=== PATIENT | female | born 1985 | race Caucasian/White ===

== ENCOUNTER 2019-01-09 21:37 | Inpatient (IN) | payer BC, OTHER ==
[~2019-01-09] VITALS: Ht 170.2 cm; Wt 97.5 kg
[2019-01-09] MEDS ORDERED: NS IV 1000 ML 1,000 ML IV STA ×2 (22:19→23:56)
[2019-01-09] MEDS ORDERED: KETOROLAC 30 MG/ML VIAL IVP STA (22:19)
[2019-01-09 22:34] LABS: HEMATOCRIT 45 % (35-52); HEMOGLOBIN 15.6 G/DL (11.5-16.0); MEAN CORPUSCULAR HEMOGLOBIN 31 PG (25-34); MEAN CORPUSCULAR HGB CONC 35 G/DL (32-36); MEAN CORPUSCULAR VOLUME 89 FL (80-99); RED CELL DISTRIBUTION WIDTH 11.7 % (10.0-14.5); WHITE BLOOD COUNT 10.1 10^3/uL (4.3-11.0)
[2019-01-09 22:35] LABS: BASOPHILS # (AUTO) 0.1 10^3/uL (0.0-0.1); BASOPHILS % (AUTO) 1 % (0-10); EOSINOPHILS # (AUTO) 0.2 10^3/uL (0.0-0.3); EOSINOPHILS % (AUTO) 2 % (0-10); LYMPHOCYTES # (AUTO) 3.8 X 10^3 (1.0-4.0); LYMPHOCYTES % (AUTO) 37 % (12-44); MEAN PLATELET VOLUME 10.1 FL (7.4-10.4); MONOCYTES # (AUTO) 0.8 X 10^3 (0.0-1.0); MONOCYTES % (AUTO) 8 % (0-12); NEUTROPHILS # (AUTO) 5.1 X 10^3 (1.8-7.8); NEUTROPHILS % (AUTO) 51 % (42-75); PLATELET COUNT 262 10^3/uL (130-400)
[2019-01-09 22:36] LABS: HCG,QUALITATIVE URINE NEGATIVE (NEGATIVE)
[2019-01-09] MEDS ORDERED: HOLD METFORMIN - RECEIVED CONTRAST 20 ML VIAL IV SCH (22:45)
[2019-01-09] MEDS ORDERED: IOHEXOL 350 MG/ML 100 ML (OMNIPAQUE 350) VIAL IV ONE (22:45)
[2019-01-09] MEDS ORDERED: NS 100 ML (IVPB) BAG IV ONE (22:45)
[2019-01-09 22:46] LABS: CLARITY,URINE CLEAR; COLOR,URINE YELLOW; GLUCOSE, URINE (UA) NEGATIVE (NEGATIVE); PROTEIN,URINE NEGATIVE (NEGATIVE)
[2019-01-09 22:47] LABS: BILIRUBIN,URINE NEGATIVE (NEGATIVE); KETONES,URINE NEGATIVE (NEGATIVE); LEUKOCYTE ESTERASE ,URINE NEGATIVE (NEGATIVE); NITRITE,URINE NEGATIVE (NEGATIVE)
[2019-01-09 22:48] LABS: BUN/CREATININE RATIO 8; CALCIUM 9.3 MG/DL (8.5-10.1); CARBON DIOXIDE 22 MMOL/L (21-32); CHLORIDE 100 MMOL/L (98-107); CREATININE SERUM 0.86 MG/DL (0.60-1.30); GFR ESTIMATED > 60; GLUCOSE 128 MG/DL (70-105); POTASSIUM 3.5 MMOL/L (3.6-5.0); SODIUM 138 MMOL/L (135-145)
[2019-01-09 22:49] LABS: ALANINE AMINOTRANSFERASE 42 U/L (0-55); ALBUMIN 4.3 GM/DL (3.2-4.5); ALKALINE PHOSPHATASE 111 U/L (40-136); BILIRUBIN,TOTAL 0.9 MG/DL (0.1-1.0); LIPASE 50 U/L (8-78); TOTAL PROTEIN 7.3 GM/DL (6.4-8.2)
--- NOTE | 2019-01-09 23:08 | ED Abdominal Pain ---
General Chief Complaint: Abdominal/GI Problems Stated Complaint: ABD PAIN, ALL OVER ITCHING Nursing Triage Note: PT. REPORTED SHE HAS HAD ABD PAIN THAT STARTED 2 WKS AGO BUT CONTINUED TO GET WORSE TONIGHT. THE PAIN IS ON THE RIGHT SIDE UNDER HER RIBS AND GOES THROUGH TO HER BACK. PT. REPORTED SHE HAS BEEN ITCHING ALL OVER FOR 3 DAYS. PT. STATED SHE STARTED A NEW CONTROL [place] 2 WKS AGO. PT. GALL BLADDER HAS BEEN REMOVED. Sepsis Screen: No Definite Risk Source of Information: Patient History of Present Illness Date Seen by Provider: Jan 09, 2019 Time Seen by Provider: 23:08 Initial Comments 33-year-old female presenting with complaints of illness 2 weeks of right upper quadrant abdominal pain. This pain is been getting worse and radiating into her back as well. She has had low-grade fevers and nausea with vomiting. She has also been having some itching and a fine erythematous rash on her arms and trunk. She has been having loose stools. She denies any black or tarry stools. She has not noticed any blood in her stools. She had been started on a new control as well as Zoloft 2 weeks ago and was unsure if that might be causing her symptoms. She felt like everything was getting worse and was most severe tonight so she came to the emergency department to be evaluated. She follows with a nurse practitioner at [facility]. She had been started on the control by Dr. Pope to help with ovarian cysts and pain from those. Allergies and Home Medications Allergies Coded Allergies: shellfish derived (Verified Allergy, Unknown, 01/09/19) Patient Home Medication List Home Medication List Reviewed: Yes Review of Systems Review of Systems Constitutional: chills, fever, malaise EENTM: No Blurred Vision, No Nose Congestion Respiratory: Denies Cough, Denies Shortness of Air Cardiovascular: Denies Chest Pain Gastrointestinal: Abdominal Pain (right side radiating to her back), Diarrhea (loose stools), Nausea; Denies Rectal Bleeding; Vomiting Genitourinary: Denies Burning, Denies Discharge, Denies Frequency; Flank Pain (right side) Musculoskeletal: back pain (right side where her abdomen pain and flank pain radiates into her back) Skin: pruritus, rash (arms and trunk) Psychiatric/Neurological: Anxiety Endocrine: No Symptoms Reported Past Yfydpqs-Cootah-Sflqfo Hx Past Med/Social Hx: Reviewed Nursing Past Med/Soc Hx Patient Social History Recent Foreign Travel: No Contact w/Someone Who Travel: No Recent Infectious Disease Expo: No Physical Abuse: No Sexual Abuse: No Mistreated: No Fear: No Past Medical History Surgeries: Yes Cardiac (cardiac ablation), Section, Gallbladder Physical Exam Vital Signs Vital Signs - First Documented 01/09/19 21:54 Temp 99.3 Pulse 115 Resp 20 B/P (MAP) 149/79 (102) Pulse Ox 99 O2 Delivery Room Air Capillary Refill : Less Than 3 Seconds Height/Weight/BMI Height: 5'7.00" Weight: 215lbs. oz. 97.298274kx; BMI Method:Stated General Appearance: WD/WN, moderate distress (patient is tearful and crying in pain) HEENT: PERRL/EOMI, normal ENT inspection, pharynx normal Neck: non-tender, full range of motion, supple, normal inspection Respiratory: chest non-tender, lungs clear, normal breath sounds, no respiratory distress, no accessory muscle use Cardiovascular: normal peripheral pulses, tachycardia Gastrointestinal: soft, no pulsatile mass, abnormal bowel sounds (hypoactive), guarding (right upper quadrant); No rebound; tenderness (right upper quadrant); No mass Rectal: deferred Extremities: normal range of motion, non-tender, normal inspection, no pedal edema, no calf tenderness, normal capillary refill Back: no vertebral tenderness, CVA tenderness (R) Neurologic/Psychiatric: alert, oriented x 3 Skin: normal color, warm/dry, rash (fine erythematous papular rash on her arms and trunk) Progress/Results/Core Measures Results/Orders Lab Results Laboratory Tests Test 01/09/19 22:06 01/09/19 22:10 Range/Units Urine Color YELLOW Urine Clarity CLEAR Urine pH 6.0 5-9 Urine Specific [place] <=1.005 1.016-1.022 Urine Protein NEGATIVE NEGATIVE Urine Glucose (UA) NEGATIVE NEGATIVE Urine Ketones NEGATIVE NEGATIVE Urine Nitrite NEGATIVE NEGATIVE Urine Bilirubin NEGATIVE NEGATIVE Urine Urobilinogen 1.0 NORMAL MG/DL Urine Leukocyte Esterase NEGATIVE NEGATIVE Urine RBC (Auto) NEGATIVE NEGATIVE Urine RBC /HPF Urine WBC /HPF Urine Crystals NONE /LPF Urine Bacteria /HPF Urine Casts NONE /LPF Urine Mucus NEGATIVE /LPF Urine Culture Indicated NO Urine Test NEGATIVE NEGATIVE White Blood Count 10.1 4.3-11.0 10^3/uL Red Blood Count 5.08 4.35-5.85 10^6/uL Hemoglobin 15.6 11.5-16.0 G/DL Hematocrit 45 35-52 % Mean Corpuscular Volume 89 80-99 FL Mean Corpuscular Hemoglobin 31 25-34 PG Mean Corpuscular Hemoglobin Concent 35 32-36 G/DL Red Cell Distribution Width 11.7 10.0-14.5 % Platelet Count 262 130-400 10^3/uL Mean Platelet Volume 10.1 7.4-10.4 FL Neutrophils (%) (Auto) 51 42-75 % Lymphocytes (%) (Auto) 37 12-44 % Monocytes (%) (Auto) 8 0-12 % Eosinophils (%) (Auto) 2 0-10 % Basophils (%) (Auto) 1 0-10 % Neutrophils # (Auto) 5.1 1.8-7.8 X 10^3 Lymphocytes # (Auto) 3.8 1.0-4.0 X 10^3 Monocytes # (Auto) 0.8 0.0-1.0 X 10^3 Eosinophils # (Auto) 0.2 0.0-0.3 10^3/uL Basophils # (Auto) 0.1 0.0-0.1 10^3/uL Sodium Level 138 135-145 MMOL/L Potassium Level 3.5 L 3.6-5.0 MMOL/L Chloride Level 100 98-107 MMOL/L Carbon Dioxide Level 22 21-32 MMOL/L Anion Gap 16 H 5-14 MMOL/L Blood Urea Nitrogen 7 7-18 MG/DL Creatinine 0.86 0.60-1.30 MG/DL Estimat Glomerular Filtration Rate > 60 BUN/Creatinine Ratio 8 Glucose Level 128 H 70-105 MG/DL Calcium Level 9.3 8.5-10.1 MG/DL Corrected Calcium 9.1 8.5-10.1 MG/DL Total Bilirubin 0.9 0.1-1.0 MG/DL Aspartate Amino Transf (AST/SGOT) 31 5-34 U/L Alanine Aminotransferase (ALT/SGPT) 42 0-55 U/L Alkaline Phosphatase 111 40-136 U/L Total Protein 7.3 6.4-8.2 GM/DL Albumin 4.3 3.2-4.5 GM/DL Lipase 50 8-78 U/L My Orders Orders - MONIKA KOTHARI MD Ua Culture If Indicated (01/09/19 21:58) Hcg,Qualitative Urine (01/09/19 21:58) Comprehensive Metabolic Panel (01/09/19 22:19) Lipase (01/09/19 22:19) Ed Iv/Invasive Line Start (01/09/19 22:19) Cbc With Automated Diff (01/09/19 22:19) Ns Iv 1000 Ml (Sodium Chloride 0.9%) (01/09/19 22:19) Ketorolac Injection (Toradol Injection) (01/09/19 22:19) Iohexol Injection (Omnipaque 350 Mg/Ml 1 (01/09/19 22:45) Received Contrast (Hold Metformin- Contr (01/09/19 22:45) Ns (Ivpb) (Sodium Chloride 0.9% Ivpb Bag (01/09/19 22:45) Ct Abdomen/Pelvis Wo (01/09/19 22:19) Fentanyl Injection (Sublimaze Injection (01/09/19 23:50) Ceftriaxone For Iv Use (Rocephin For I (01/09/19 23:50) Metronidazole 500mg/100ml Ivpb (Flagyl 5 (01/09/19 23:50) Ondansetron Injection (Zofran Injectio (01/09/19 23:56) Ns Iv 1000 Ml (Sodium Chloride 0.9%) (01/09/19 23:56) Vital Signs/I&O 01/09/19 01/10/19 21:54 00:16 Temp 99.3 98.3 Pulse 115 80 Resp 20 16 B/P (MAP) 149/79 (102) 112/83 (93) Pulse Ox 99 97 O2 Delivery Room Air Room Air 01/10/19 00:00 Intake Total 1000 ml Balance 1000 ml Blood Pressure Mean: 102 Progress Progress Note #1: Progress Note Obtain labs and urinalysis. We will give Toradol to try and help with the pain. IV fluids to help with hydration and tachycardia. Obtain a CT scan of the abdom en and pelvis to evaluate her right upper quadrant abdominal pain. We'll perform this without contrast since she has a history of shellfish allergy is unsure if she can take contrast or not. Progress Note #2: Progress Note Labs do not show anything specific to account for her pain. Her CBC is within normal limits. Her chemistry has mild hypokalemia with a potassium of the lower limits of normal. She has been having loose stools but she has those anyway because of having her gallbladder out. She has CT scan showing mucosal wall thickening of the ascending and transverse colon and some into the descending colon. She has no abscess or signs of perforation. She has improved pain after the toradol and her heart rate improved after fluids and treatment in the ED. She does have continued pain though in RUQ so a dose of fentanyl was give but she still has pain in the abdomen. Will start Rocephin and Flagyl for her pain and findings of colitis. will check with Dr. Villafana, the ironing worker doctor for [facility], about admit Progress Note #3: Time: 00:24 Progress Note d/w Dr. Villafana about admit. She requested I also speak with Dr. Pacheco the ironing worker surgeon about the patient so that he would see her in consult and weigh in on management for the colitis and abdominal pain. [address] Pacheco and he was ok with antibiotics for tonight. He stated that in the morning he recheck the labs and reassess her abdomen. She may be suspicious over to steroids at that time. He was also asking if she had any history of inflammatory bowel disease or family history of that. I advised him when I asked her about that she had denied it. She also denies eating at the local [employer] [facility] [employer] restaurant that recently had Shigella outbreak. We will obtain stool studies just in case any of this was infectious. Diagnostic Imaging Diagonstic Imaging: CT Plain Films/CT/US/NM/MRI: abdomen, pelvis Comments Colitis of the ascending and transverse colon as well as extending into the descending colon. No abscess or signs of perforation. There is cyst in the left ovary that appears to be a Dermoid cyst. Reviewed: Reviewed [facility] Departure Communication (Admissions) Time/Spoke to Admitting Phy: 00:24 D/w Dr. Villafana about admitting pt for pain control and antibiotics for colitis found on CT. She has been having worsening pain over the last 2 weeks. She has no hx of colitis or family hx of colitis/IBD or ulcerative colitis. Time/Spoke to Consulting Phy: 00:[address] Pacheco at request of Dr. Villafana. He was ok with antibiotics and wanted stool studies. will recheck labs and assess her abdomen again. He might switch her to steroids but for now will start with the antibiotics, pain medicine and fluids. Impression Primary Impression: Acute colitis Additional Impressions: RUQ abdominal pain Rash and nonspecific skin eruption Itching Nausea & vomiting Qualified Codes: R11.14 - Bilious vomiting Disposition: ADMITTED INPATIENT Condition: Stable Admissions Decision to Admit Reason: Admit from ER (General) Decision to Admit/Date: Jan 10, 2019 Time/Decision to Admit Time: 00:24 Departure-Patient Inst. Referrals: [facility] (PCP) Primary Care Physician Images Full Body/Extremities Full 1 - Moderate, Tenderness MONIKA KOTHARI MD Jan 09, 2019 23:08
[2019-01-09] MEDS ORDERED: metroNIDAZOLE 500MG/100ML IVPB 100 ML IV STA (23:50)
[2019-01-09] MEDS ORDERED: cefTRIAXone FOR IV USE 1,000 MG in WATER (STERILE) FOR INJECTION 10 ML IV STA (23:50)
[2019-01-09] MEDS ORDERED: fentaNYL INJECTION 100 MCG/2 ML AMP IVP STA (23:50)
[2019-01-09] MEDS ORDERED: ONDANSETRON 4 MG/2 ML (SDV) Z0FRAN IVP STA (23:56)
[2019-01-10] VITALS (7 sets, daily range): BP systolic 103–134; BP diastolic 65–83
[2019-01-10] MEDS: ONDANSETRON 4 MG/2 ML (SDV) Z0FRAN IV PRN ×2 (04:57→17:21)
[2019-01-10] MEDS ORDERED: diphenhydrAMINE 50 MG/ML INJ (BENADRYL) IV PRN (05:00)
[2019-01-10] MEDS: fentaNYL INJECTION 100 MCG/2 ML AMP IV PRN ×6 (05:02→22:36)
[2019-01-10] MEDS: NS W/KCL 20 MEQ/L 1,000 ML IV SCH ×3 (05:13→23:28)
[2019-01-10 05:34] LABS: BASOPHILS % (AUTO) 0 % (0-10); EOSINOPHILS # (AUTO) 0.2 10^3/uL (0.0-0.3); EOSINOPHILS % (AUTO) 3 % (0-10); HEMATOCRIT 39 % (35-52); HEMOGLOBIN 13.4 G/DL (11.5-16.0); LYMPHOCYTES # (AUTO) 3.1 X 10^3 (1.0-4.0); LYMPHOCYTES % (AUTO) 45 % (12-44); MEAN CORPUSCULAR HEMOGLOBIN 31 PG (25-34); MEAN CORPUSCULAR HGB CONC 34 G/DL (32-36); MEAN CORPUSCULAR VOLUME 90 FL (80-99); MEAN PLATELET VOLUME 10.3 FL (7.4-10.4); MONOCYTES # (AUTO) 0.6 X 10^3 (0.0-1.0); MONOCYTES % (AUTO) 8 % (0-12); NEUTROPHILS % (AUTO) 44 % (42-75); PLATELET COUNT 207 10^3/uL (130-400); RED CELL DISTRIBUTION WIDTH 11.9 % (10.0-14.5); WHITE BLOOD COUNT 6.9 10^3/uL (4.3-11.0)
[2019-01-10 05:52] LABS: BUN/CREATININE RATIO 9; CALCIUM 8.1 MG/DL (8.5-10.1); CARBON DIOXIDE 20 MMOL/L (21-32); CHLORIDE 110 MMOL/L (98-107); CREATININE SERUM 0.75 MG/DL (0.60-1.30); GFR ESTIMATED > 60; GLUCOSE 94 MG/DL (70-105); POTASSIUM 3.8 MMOL/L (3.6-5.0); SODIUM 139 MMOL/L (135-145)
--- NOTE | 2019-01-10 06:36 | Diagnostic Imaging Report ---
PROCEDURE: CT abdomen and pelvis without contrast. TECHNIQUE: Multiple contiguous axial images were obtained through the abdomen and pelvis without the use of intravenous contrast. Auto Exposure Controls were utilized during the CT exam to meet ALARA standards for radiation dose reduction. INDICATION: Abdominal pain COMPARISON: None available FINDINGS: The visualized lung bases are clear. Cholecystectomy. The unenhanced liver, spleen, adrenal glands, and pancreas are unremarkable. The kidneys and ureters are unremarkable. No aneurysmal dilatation of the abdominal aorta. The urinary bladder is unremarkable. A 3.4 cm fat-containing left adnexal mass lesion. The right adnexa is unremarkable. The appendix is unremarkable. No bowel obstruction or pneumatosis. Mild mural thickening associated with the ascending colon and proximal transverse colon. No significant adenopathy, free air, or free fluid within the abdomen or pelvis. No acute osseous abnormality. IMPRESSION: Findings likely relate to colitis, predominantly involving the ascending and proximal transverse colon. Left ovarian dermoid. Agree with preliminary interpretation. Dictated by: Dictated on workstation # [id number]
[2019-01-10] MEDS: metroNIDAZOLE 500 MG/100 ML IVPB (PRE-MIX) IV SCH ×3 (07:56→23:28)
--- NOTE | 2019-01-10 08:46 | Consultation - Surgery ---
MARY WEBB,MED STUDENT 01/10/19 0846: History of Present Illness History of Present Illness Patient Consulted On(michelle/time) 01/10/19 07:25 Date Seen by Provider: Jan 10, 2019 Time Seen by Provider: 07:25 History of Present Illness Consultation as requested for colitis. Patient seen and evaluated in med/surg. Patient presented to the emergency department last night due to RUQ abdominal pa in, nausea, and vomiting. The RUQ pain began 2 weeks ago and has been progressively worsening. It is made better by laying still and worsened with pressure on the abdomen. Patient is status post cholecystectomy which she states was performed about 1 year ago. She also complains of some LLQ pain which she attributes to an ovarian cyst on the left side. She states her nausea has impr chel today and she has not had any further emesis since last night. WBC down to 6.9 from 10.1 last night. Tolerating clear liquid diet. Denies diarrhea, melena, hematochezia, sweats, or chills. Denies history of colitis or IBD. Also denied eating at [employer] recently which had a recent Shigella outbreak. No family at bedside. Imaging reviewed including CT abd/pelvis which showed mild mural thickening of ascending colon and proximal transverse colon, likely related to colitis, without evidence of perforation. left ovarian dermoid cyst. Allergies and Home Medications Allergies Coded Allergies: shellfish derived (Verified Allergy, Unknown, 01/09/19) Home Medications Norethindrone-E.estradiol-Iron 1 Each Capsule, 1 CAP PO DAILY, (Reported) Sertraline HCl 25 Mg Tablet, 25 MG PO HS, (Reported) Patient Home Medication List Home Medication List Reviewed: Yes Past Bnavyeh-Oszted-Leagmg Hx Patient Social History Recent Foreign Travel: No Contact w/Someone Who Travel: No Recent Infectious Disease Expo: No Surgeries History of Surgeries: Yes Surgeries: Cardiac (cardiac ablation), Section, Gallbladder Family Medical History Family Medial History: Diabetes mellitus 19 FATHER G8 BROTHER Review of Systems-General Constitutional: see HPI EENTM: no symptoms reported Respiratory: no symptoms reported Cardiovascular: no symptoms reported Gastrointestinal: see HPI, abdominal pain (RUQ, LLQ) Genitourinary: no symptoms reported Musculoskeletal: no symptoms reported Skin: no symptoms reported Psychiatric/Neurological: No Symptoms Reported Physical Exam-General Problems Physical Exam Vital Signs Vital Signs - First Documented 01/09/19 21:54 Temp 99.3 Pulse 115 Resp 20 B/P (MAP) 149/79 (102) Pulse Ox 99 O2 Delivery Room Air Capillary Refill : Less Than 3 Seconds General Appearance: WD/WN, no apparent distress HEENT: PERRL/EOMI, pharynx normal Neck: non-tender, full range of motion, supple, normal inspection Respiratory: chest non-tender, no respiratory distress, no accessory muscle use Cardiovascular: normal peripheral pulses, regular rate, rhythm Gastrointestinal: soft; No distended; tenderness (mild diffuse tenderness with moderate tenderness over RUQ) Rectal: deferred Back: normal inspection, no CVA tenderness Extremities: normal range of motion, non-tender, normal inspection Neurologic/Psychiatric: no motor/sensory deficits, alert, normal mood/affect, oriented x 3 Skin: normal color, warm/dry Lymphatic: no adenopathy Data Review Labs Laboratory Tests 01/09/19 22:06: Urine Color YELLOW, Urine Clarity CLEAR, Urine pH 6.0, Urine Specific [place] <=1.005, Urine Protein NEGATIVE, Urine Glucose (UA) NEGATIVE, Urine Ketones NEGATIVE, Urine Nitrite NEGATIVE, Urine Bilirubin NEGATIVE, Urine Urobilinogen 1.0, Urine Leukocyte Esterase NEGATIVE, Urine RBC (Auto) NEGATIVE, Urine RBC , Urine WBC , Urine Crystals NONE, Urine Bacteria , Urine Casts NONE, Urine Mucus NEGATIVE, Urine Culture Indicated NO, Urine Test NEGATIVE 01/09/19 22:10: White Blood Count 10.1, Red Blood Count 5.08, Hemoglobin 15.6, Hematocrit 45, Mean Corpuscular Volume 89, Mean Corpuscular Hemoglobin 31, Mean Corpuscular Hemoglobin Concent 35, Red Cell Distribution Width 11.7, Platelet Count 262, Mean Platelet Volume 10.1, Neutrophils (%) (Auto) 51, Lymphocytes (%) (Auto) 37, Monocytes (%) (Auto) 8, Eosinophils (%) (Auto) 2, Basophils (%) (Auto) 1, Neutrophils # (Auto) 5.1, Lymphocytes # (Auto) 3.8, Monocytes # (Auto) 0.8, Eosinophils # (Auto) 0.2, Basophils # (Auto) 0.1, Sodium Level 138, Potassium Level 3.5L, Chloride Level 100, Carbon Dioxide Level 22, Anion Gap 16H, Blood Urea Nitrogen 7, Creatinine 0.86, Estimat Glomerular Filtration Rate > 60, BUN/Creatinine Ratio 8, Glucose Level 128H, Calcium Level 9.3, Corrected Calcium 9.1, Total Bilirubin 0.9, Aspartate Amino Transf (AST/SGOT) 31, Alanine Aminot ransferase (ALT/SGPT) 42, Alkaline Phosphatase 111, Total Protein 7.3, Albumin 4.3, Lipase 50 01/10/19 05:04: White Blood Count 6.9, Red Blood Count 4.35, Hemoglobin 13.4, Hematocrit 39, Mean Corpuscular Volume 90, Mean Corpuscular Hemoglobin 31, Mean Corpuscular Hemoglobin Concent 34, Red Cell Distribution Width 11.9, Platelet Count 207, Mean Platelet Volume 10.3, Neutrophils (%) (Auto) 44, Lymphocytes (%) (Auto) 45H , Monocytes (%) (Auto) 8, Eosinophils (%) (Auto) 3, Basophils (%) (Auto) 0, Neutrophils # (Auto) 3.0, Lymphocytes # (Auto) 3.1, Monocytes # (Auto) 0.6, Eosinophils # (Auto) 0.2, Basophils # (Auto) 0.0, Sodium Level 139, Potassium Level 3.8, Chloride Level 110#H, Carbon Dioxide Level 20L, Anion Gap 9, Blood Urea Nitrogen 7, Creatinine 0.75, Estimat Glomerular Filtration Rate > 60, BUN/Creatinine Ratio 9, Glucose Level 94, Calcium Level 8.1L Assessment/Plan Assessment/Plan Assessment/Plan RUQ Abdominal pain Nausea and vomiting Colitis of ascending and proximal transverse colon Continue antibiotics and clear liquids Stool cultures pending Pain well controlled at this time Will follow Clinical Quality Measures DVT/VTE Risk/Contraindication: Risk Factor Score Per Nursin RFS Level Per Nursing on Admit: 2=Moderate ASHVIN PACHECO DO 01/10/192056: History of Present Illness History of Present Illness History of Present Illness consult requested by Dr. Villafana for colitis Patient is a 33-year-old female who has been having abdominal pain for proximal 2 weeks. She states the pain has increased over the last couple days. Her pain is primarily on the right side of her abdomen more in the right quadrant upper. Patient states that the pain is made better by lying still. Pushing on the abdomen next the pain worse. Patient states that she's had some loose stools but no diarrhea. Patient has never had any issues of pain like this before. She is also has left lower quadrant abdominal pain. She has had some emesis previously but has not had any since admitted. Patient had CT scan that was reviewed demonstrating a left adnexal cysts and ascending and transverse colon thickening consistent with colitis. No free air. Patient has been on clear liquids which she is tolerating.at onset patient was started on some new medications which she thinks may be contributing to her symptoms. Allergies and Home Medications Allergies Coded Allergies: shellfish derived (Verified Allergy, Unknown, 01/09/19) Home Medications Norethindrone-E.estradiol-Iron 1 Each Capsule, 1 CAP PO DAILY, (Reported) Sertraline HCl 25 Mg Tablet, 25 MG PO HS, (Reported) Patient Home Medication List Home Medication List Reviewed: Yes Past Fdgigjf-Fyzbng-Dnrdgn Hx Patient Social History Alcohol Use: Occasionally Uses Recreational Drug Use: No Smoking Status: Current Everyday Smoker Surgeries Surgeries: Cardiac (cardiac ablation), Section, Gallbladder Family Medical History Significant Family History: No Pertinent Family Hx Family Medial History: Diabetes mellitus 19 FATHER G8 BROTHER Review of Systems-General Constitutional: see HPI EENTM: no symptoms reported Respiratory: no symptoms reported Cardiovascular: no symptoms reported Gastrointestinal: see HPI Genitourinary: no symptoms reported Musculoskeletal: no symptoms reported Skin: no symptoms reported Psychiatric/Neurological: No Symptoms Reported Physical Exam-General Problems Physical Exam General Appearance: WD/WN, no apparent distress HEENT: PERRL/EOMI, normal ENT inspection Neck: non-tender, full range of motion, supple, normal inspection Cardiovascular: regular rate, rhythm Gastrointestinal: soft, tenderness (mild diffuse tenderness with moderate tenderness over RUQ) Back: normal inspection, no CVA tenderness Extremities: normal range of motion, non-tender, normal inspection Neurologic/Psychiatric: no motor/sensory deficits, alert, normal mood/affect, oriented x 3 Skin: normal color, warm/dry Lymphatic: no adenopathy Assessment/Plan Assessment/Plan Assessment/Plan right upperquadrant and left lower quadrant abdominal pain Nausea and vomiting Colitis of the ascending and proximal transverse colon patient continue on clear liquid diet. Patient no white count elevation. Continue on IV antibiotics. Pain control. No surgical intervention at this time. Will need colonoscopy likely outpatient. If any worsening may need to evaluate this admission.conservative measures for now. Supervisory-Addendum Brief Verification & Attestation Participated in pt care: history, MDM, physical Personally performed: exam, history, MDM, supervision of care Care discussed with: Medical Student Procedures: n/a Results interpretation: Verified all documentation Verification and Attestation of Medical Student E/M Service A medical student performed and documented this service in my presence. I reviewed and verified all information documented by the medical student and made modifications to such information, when appropriate. I personally performed the physical exam and medical decision making. Ashvin Pacheco, Jan 10, 2019,20:58 MARY WEBB,MED STUDENT Jan 10, 2019 08:46 ASHVIN PACHECO DO Jan 10, 2019 20:57
[2019-01-10] MEDS ORDERED: NORE1CAP PO (09:23)
[2019-01-10] MEDS ORDERED: SERT25TA5 PO (09:23)
[2019-01-10] MEDS ORDERED: BIRTH CONTROL (09:23)
--- NOTE | 2019-01-10 11:50 | History & Physical-Hospitalist ---
AURY REID [facility] 01/10/19 1150: History of Present Illness HPI/Chief Complaint C/C: Abdominal Pain HPI: Allison is a 33 year old white female that presented with RUQ abdominal pain that has been going on for two weeks. She also has a rash on her body. She stated she was concerned that it may have something to do with her new control and depression medication she started two weeks ago. Date Seen 01/10/19 Time Seen by a Provider: 08:15 Attending Physician Kyleigh Honeycutt DO [facility] Ref[facility] Date of Admission Jan 10, 2019 at 00:24 Home Medications & Allergies Home Medications Reviewed patient Home Medication Reconciliation performed by pharmacy medication reconciliations forklift technician and/or nursing. Patients Allergies have been reviewed. Patient stated she is currently on: [place] QD Zoloft 25mg QD Ibuprofen PRN Vitamin B Allergies Allergies Coded Allergies shellfish derived (Verified Allergy, Unknown, 01/09/19) Past Kqbvwke-Ejigau-Vpoxig Hx Past Med/Social Hx: Reviewed Nursing Past Med/Soc Hx Patient Social History Number of Children: 3 Employed/Student: employed Alcohol Use: Occasionally Uses Smoking Status: Current Everyday Smoker Cigaretts per day: 24 (Patient states she smokes a pack aday since she was in high school ) Recent Foreign Travel: No Contact w/other who traveled: No Recent Infectious Disease Expo: No Past Medical History Surgeries: Cardiac (cardiac ablation), Section, Gallbladder : No Female Reproductive Disorders: Ovarian Cyst (Left Ovarian Cyst) Psychosocial: Depression Cholecystectomy C- sections Cardiac ablation Left ovarian cyst Family History Diabetes mellitus 19 FATHER G8 BROTHER Father: at 64, had diabetes, CHF, Cirrhosis of the liver, peripheral neuropathy Mother: still alive, hx of breast cancer, uterine cancer and RA Brother: diabetes Review of Systems Constitutional: No diaphoresis; dizziness; No fever; weight loss EENTM: eye pain; No hearing loss, No blurred vision, No double vision, No mouth pain, No mouth swelling, No nose pain, No throat pain Respiratory: no symptoms reported Cardiovascular: no symptoms reported Gastrointestinal: abdominal pain; No jaundice Genitourinary: no symptoms reported Musculoskeletal: back pain, other (Patient has neck pain ) Skin: other (Patient states she had a small rash) Psychiatric/Neurological: Depressed Physical Exam Physical Exam Vital Signs Vital Signs - First Documented 01/09/19 21:54 Temp 99.3 Pulse 115 Resp 20 B/P (MAP) 149/79 (102) Pulse Ox 99 O2 Delivery Room Air Capillary Refill : Less Than 3 Seconds Height, Weight, BMI Height: 5'7.00" Weight: 215lbs. 0.0oz. [id number]; 33.7 BMI Method:Stated General Appearance: No Apparent Distress Eyes: Bilateral Eye PERRL HEENT: Normal ENT Inspection, Moist Mucous Membranes Neck: Full Range of Motion, Non Tender Respiratory: Chest Non Tender, Lungs Clear, Normal Breath Sounds, No Accessory Muscle Use, No Respiratory Distress Cardiovascular: Regular Rate, Rhythm, No Edema, No JVD Gastrointestinal: Other (Bowels sounds and tender abdomen) Extremity: Normal Capillary Refill Neurologic/Psychiatric: Alert, Oriented x3, camp assistant II-XII Norm as Tested Skin: Normal Color, Warm/Dry Results Results/Procedures Labs Laboratory Tests 01/09/19 22:10 01/10/19 05:04 Patient resulted labs reviewed. Assessment/Plan Assessment and Plan Assessment: 1. Ascending Cholangitis 2. Allergic Reaction to new medication 3. Primary Biliary Cirrhosis 4. Irritable [place] Disease (Crohn or UC) 5. Choledocholithiasis 6. Acute Pancreatitis 7. Kidney Stone 8. Hepatitis (A,B,C, Autoimmune) 9. Acute Intermittent Porphyria 10. Celiac Disease 11. C-diff 12. Adhesions 13. M.S 14. Viral or Bacterial infection Plan: 1. Stop Zoloft and Control 2. ANCA Test 3. ESR 4. Stool Sample and C-diff toxin test 5. Colonoscopy 6. Continue on IV fluids and keep patient NPO 7. Continue on Antibiotics 8. Monitor labs (CBC w/diff, CMP, GGT, Lipase, Lactic Acid) 9. Continue monitoring vitals q6 Clinical Quality Measures DVT/VTE Risk/Contraindication: Risk Factor Score Per Nursin RFS Level Per Nursing on Admit: 2=Moderate KYLEIGH HONEYCUTT DO 01/10/192050: History of Present Illness HPI/Chief Complaint Chief complaint: Abdominal pain HPI: This is a 33yoWF with a past medical history of severe depression who was placed on new medication for depression two weeks ago but began having abdominal pain without diarrhea or melena. CT scan in the ER at [place] was obtained showing mishra colitis so she was placed on Rocephin and Flagyl in addition Dr. Pacheco will be consulted. No surgical emergency noted but she will need endoscopy ultimately. C-Diff is pending. Abdominal pain is such improved and the last BM was the day before yesterday. Source: patient Past Rekevod-Qmjdxf-Qhisiw Hx Past Med/Social Hx: Reviewed Nursing Past Med/Soc Hx, Reviewed and Corrections made Patient Social History Employed/Student: employed Alcohol Use: Occasionally Uses Smoking Status: Current Everyday Smoker Family History Diabetes mellitus 19 FATHER G8 BROTHER Review of Systems Constitutional: see HPI Gastrointestinal: abdominal pain (LLQ) Physical Exam Physical Exam General Appearance: No Apparent Distress, WD/WN, Chronically ill, Obese Eyes: Right Eye Normal Inspection, Right Eye PERRL HEENT: PERRL/EOMI, Normal ENT Inspection, Pharynx Normal, Moist Mucous Membranes Neck: Full Range of Motion, Normal Inspection, Non Tender Respiratory: Chest Non Tender, Lungs Clear, Normal Breath Sounds, No Accessory Muscle Use, No Respiratory Distress Cardiovascular: Regular Rate, Rhythm, No Edema, No Gallop, No JVD, No Murmur, Normal Peripheral Pulses Gastrointestinal: Normal Bowel Sounds, No Organomegaly, No Pulsatile Mass, Soft, Tenderness Back: Normal Inspection, No CVA Tenderness, No Vertebral Tenderness Extremity: Normal Capillary Refill, Normal Inspection, Normal Range of Motion, Non Tender, No Calf Tenderness, No Pedal Edema Neurologic/Psychiatric: Alert, Oriented x3, No Motor/Sensory Deficits, Depressed Affect Skin: Normal Color, Warm/Dry Lymphatic: No Adenopathy Assessment/Plan Admission Diagnosis Assessment: Pancolitis Depression Obesity Smoker Plan: Abx Check C diff Appreciate Dr Pacheco help Admission Status: Observation Diagnosis/Problems Diagnosis/Problems (1) Acute colitis Status: Acute (2) Smoker Status: Chronic (3) Obesity (BMI 30-39.9) (4) Depression Status: Chronic Qualifiers: Depression Type: unspecified Qualified Codes: F32.9 - Major depressive disorder, single episode, unspecified (5) Nausea & vomiting Status: Acute Qualifiers: Vomiting type: bilious vomiting Qualified Codes: R11.14 - Bilious vomiting (6) Rash and nonspecific skin eruption Status: Acute Supervisory-Addendum Brief Verification & Attestation Participated in pt care: history, MDM, physical Personally performed: exam, history, MDM, supervision of care Care discussed with: Medical Student Procedures: n/a Results interpretation: Verified all documentation Verification and Attestation of Medical Student E/M Service A medical student performed and documented this service in my presence. I reviewed and verified all information documented by the medical student and made modifications to such information, when appropriate. I personally performed the physical exam and medical decision making. Kyleigh Honeycutt, Jan 10, 2019,20:51 [facility] Jan 10, 2019 11:50 KYLEIGH HONEYCUTT DO Jan 10, 2019 20:51
[2019-01-10] MEDS ORDERED: MELATONIN 3 MG TABLET PO PRN (21:00)
[2019-01-10] MEDS ORDERED: ACETAMINOPHEN 500 MG TAB (TYLENOL) PO PRN (21:00)
[2019-01-10] MEDS ORDERED: IBUPROFEN TABLET 200 MG TAB PO PRN (21:00)
[2019-01-10] MEDS ORDERED: ALPRAZolam 0.25 MG (XANAX) TAB PO PRN (21:00)
[2019-01-10] MEDS: ENOXAPARIN 40 MG/0.4 ML (LOVENOX) SYR SC SCH (22:25)
[2019-01-10] MEDS: cefTRIAXone 1,000 MG/SWFI 10 ML IV PUSH IV SCH ×2 (22:25)
[2019-01-10] MEDS ORDERED: SCOPOLAMINE 1.5 MG (TRANSDERM-SCOP) PATCH TD ONE (23:45)
[2019-01-11] MEDS: fentaNYL INJECTION 100 MCG/2 ML AMP IV PRN (00:21)
[2019-01-11] MEDS: ONDANSETRON 4 MG/2 ML (SDV) Z0FRAN IV PRN ×4 (00:22→23:38)
[2019-01-11 00:41] VITALS: BP 102/67
[2019-01-11] MEDS: NS W/KCL 20 MEQ/L 1,000 ML IV SCH ×3 (01:00→21:08)
[2019-01-11 05:46] LABS: BASOPHILS % (AUTO) 1 % (0-10); EOSINOPHILS # (AUTO) 0.2 10^3/uL (0.0-0.3); EOSINOPHILS % (AUTO) 3 % (0-10); HEMATOCRIT 38 % (35-52); HEMOGLOBIN 12.9 G/DL (11.5-16.0); LYMPHOCYTES # (AUTO) 2.7 X 10^3 (1.0-4.0); LYMPHOCYTES % (AUTO) 49 % (12-44); MEAN CORPUSCULAR HEMOGLOBIN 31 PG (25-34); MEAN CORPUSCULAR HGB CONC 34 G/DL (32-36); MEAN CORPUSCULAR VOLUME 91 FL (80-99); MEAN PLATELET VOLUME 10.2 FL (7.4-10.4); MONOCYTES # (AUTO) 0.4 X 10^3 (0.0-1.0); MONOCYTES % (AUTO) 8 % (0-12); NEUTROPHILS # (AUTO) 2.1 X 10^3 (1.8-7.8); NEUTROPHILS % (AUTO) 39 % (42-75); PLATELET COUNT 189 10^3/uL (130-400); WHITE BLOOD COUNT 5.4 10^3/uL (4.3-11.0)
[2019-01-11 06:31] LABS: ALANINE AMINOTRANSFERASE 36 U/L (0-55); ALBUMIN 3.2 GM/DL (3.2-4.5); ALKALINE PHOSPHATASE 82 U/L (40-136); BILIRUBIN,TOTAL 0.5 MG/DL (0.1-1.0); BUN/CREATININE RATIO 8; CALCIUM 8.1 MG/DL (8.5-10.1); CARBON DIOXIDE 20 MMOL/L (21-32); CHLORIDE 110 MMOL/L (98-107); CREATININE SERUM 0.75 MG/DL (0.60-1.30); GFR ESTIMATED > 60; GLUCOSE 86 MG/DL (70-105); POTASSIUM 4.1 MMOL/L (3.6-5.0); SODIUM 138 MMOL/L (135-145); TOTAL PROTEIN 5.6 GM/DL (6.4-8.2)
--- NOTE | 2019-01-11 07:50 | Progress Note - Surgery ---
TRACEYMARY,MED STUDENT 01/11/19 0750: Subjective Date Seen by a Provider: Jan 11, 2019 Time Seen by a Provider: 07:30 Subjective/Events-last exam Patient states her right sided abdominal pain has slightly improved on clear liquids. She is complaining of nausea and vomiting with 3 episodes of emesis yesterday. Her WBC is not elevated. She has not had a bowel movement since admission. Denies fever, chills, chest pain, shortness of breath, or diarrhea. No family at bedside. Objective Exam Vital Signs Date Time Temp Pulse Resp B/P (MAP) Pulse Ox O2 Delivery O2 Flow Rate FiO2 01/11/19 00:41 97.8 73 18 102/67 (79) 98 Room Air 01/10/19 22:36 97.5 01/10/19 20:40 97.5 72 18 109/69 (82) 98 Room Air 01/10/19 20:00 98 Room Air 01/10/19 16:55 97.4 77 18 103/68 (80) 99 Room Air 01/10/19 11:38 97.6 64 20 111/74 (86) 100 Room Air 01/10/19 08:00 Room Air I & O 01/11/19 06:59 Intake Total 1759 ml Balance 1759 ml Capillary Refill : Less Than 3 SecondsLess Than 3 Seconds General Appearance: No Apparent Distress, WD/WN HEENT: PERRL/EOMI, Pharynx Normal, Moist Mucous Membranes Neck: Full Range of Motion, Normal Inspection, Non Tender Respiratory: Chest Non Tender, No Accessory Muscle Use, No Respiratory Distress Cardiovascular: Regular Rate, Rhythm, Normal Peripheral Pulses Gastrointestinal: soft, tenderness (mild diffuse tenderness with moderate tenderness over RUQ) Extremity: Normal Capillary Refill, Normal Inspection, Normal Range of Motion, Non Tender, No Calf Tenderness Neurologic/Psychiatric: Alert, Oriented x3, No Motor/Sensory Deficits Skin: Normal Color, Warm/Dry Lymphatic: No Adenopathy Results Lab Laboratory Tests 01/11/19 05:14: White Blood Count 5.4, Red Blood Count 4.17L, Hemoglobin 12.9, Hematocrit 38, Mean Corpuscular Volume 91, Mean Corpuscular Hemoglobin 31, Mean Corpuscular Hemoglobin Concent 34, Red Cell Distribution Width 12.0, Platelet Count 189, Mean Platelet Volume 10.2, Neutrophils (%) (Auto) 39L, Lymphocytes (%) (Auto) 49H, Monocytes (%) (Auto) 8, Eosinophils (%) (Auto) 3, Basophils (%) (Auto) 1, Neutrophils # (Auto) 2.1, Lymphocytes # (Auto) 2.7, Monocytes # (Auto) 0.4, Eosinophils # (Auto) 0.2, Basophils # (Auto) 0.0, Sodium Level 138, Potassium Level 4.1, Chloride Level 110H, Carbon Dioxide Level 20L, Anion Gap 8, Blood Urea Nitrogen 6L, Creatinine 0.75, Estimat Glomerular Filtration Rate > 60, BUN/Creatinine Ratio 8, Glucose Level 86, Calcium Level 8.1L, Corrected Calcium 8.7, Total Bilirubin 0.5, Aspartate Amino Transf (AST/SGOT) 16, Alanine Aminotransferase (ALT/SGPT) 36, Alkaline Phosphatase 82, Total Protein 5.6L, Albumin 3.2 Assessment/Plan Assessment/Plan Assessment/Plan right upper quadrant and left lower quadrant abdominal pain Nausea and vomiting Colitis of the ascending and proximal transverse colon patient continue on clear liquid diet. Patient no white count elevation. Continue on IV antibiotics. Pain control. No surgical intervention at this time. Will need colonoscopy likely outpatient. If any worsening may need to evaluate this admission. Continue conservative measures for now. Clinical Quality Measures DVT/VTE Risk/Contraindication: Risk Factor Score Per Nursin RFS Level Per Nursing on Admit: 2=Moderate BHARGAV PACHECO DO 01/11/192026: Subjective Subjective/Events-last exam Pain slightly improved. Taking liquids but having nausea and vomiting yesterday, just some nausea today. Denies fever sweats chills shortness of breath or chest pain. Objective Exam General Appearance: No Apparent Distress, WD/WN HEENT: PERRL/EOMI Neck: Full Range of Motion, Normal Inspection, Non Tender Respiratory: Chest Non Tender, No Accessory Muscle Use, No Respiratory Distress Cardiovascular: Regular Rate, Rhythm Gastrointestinal: soft, tenderness (minimal diffuse tenderness ) Extremity: Normal Capillary Refill, Normal Inspection, Normal Range of Motion, Non Tender, No Calf Tenderness Neurologic/Psychiatric: Alert, Oriented x3, No Motor/Sensory Deficits Skin: Normal Color, Warm/Dry Lymphatic: No Adenopathy Assessment/Plan Assessment/Plan Assessment/Plan right upper quadrant and left lower quadrant abdominal pain Nausea and vomiting Colitis of the ascending and proximal transverse colon patient with slight improvement with clear liquids and abx, possibly more of an IBD will start steroids and taper will need colonoscopy likely outpatient. Supervisory-Addendum Brief Verification & Attestation Participated in pt care: history, MDM, physical Personally performed: exam, history, MDM, supervision of care Care discussed with: Medical Student Procedures: n/a Results interpretation: Verified all documentation Verification and Attestation of Medical Student E/M Service A medical student performed and documented this service in my presence. I rev iewed and verified all information documented by the medical student and made modifications to such information, when appropriate. I personally performed the physical exam and medical decision making. Bhargav Pacheco, Jan 11, 2019,20:26 MARY WEBB,MED STUDENT Jan 11, 2019 07:50 BHARGAV PACHECO DO Jan 11, 2019 20:27
[2019-01-11] MEDS: metroNIDAZOLE 500 MG/100 ML IVPB (PRE-MIX) IV SCH ×3 (07:52→23:38)
[2019-01-11] MEDS: KETOROLAC 15 MG/ML VIAL IVP PRN ×3 (07:59→23:38)
[2019-01-11 08:00] VITALS: BP 113/76
[2019-01-11] MEDS: predniSONE 20 MG TAB PO SCH (10:15)
--- NOTE | 2019-01-11 11:08 | Progress Note - Hospitalist ---
[facility] 01/11/19 1108: Subjective HPI/CC On Admission Date Seen by Provider: Jan 11, 2019 Time Seen by Provider: 08:00 Chief complaint: Abdominal pain HPI: This is a 33yoWF with a past medical history of severe depression who was placed on new medication for depression two weeks ago but began having abdominal pain without diarrhea or melena. CT scan in the ER at [place] was obtained showing mishra colitis so she was placed on Rocephin and Flagyl in addition Dr. Pacheco will be consulted. No surgical emergency noted but she will need endoscopy ultimately. C-Diff is pending. Abdominal pain is such improved and the last BM was the day before yesterday. Subjective/Events-last exam Allison was in a somber and quiet mood this morning. She is Ambulating but not much She is still on a clear liquid diet and has been urinating but has not had a bowel movement yet She states she is still having aching pains in her abdomen moving from the RUQ to left. ROS: Denies SOB and chest pain. Abdominal pain present and is still having feelings of N/V. Skin rash and itching is longer present. Vitals: Stable Heart: HRRR Lungs: LCTAB Abdomen: Bowel sound present, still has tenderness that is moving from RUQ to the left. Labs: K+ 4.1, Na 138, WBC 5.4, HgB 12.9 with creatinine of .75 General surg:still following patient, starting on steroids Focused Exam Respiratory: Chest Non Tender, Lungs Clear, Normal Breath Sounds, No Accessory Muscle Use, No Respiratory Distress Cardiovascular: Regular Rate, Rhythm, No Edema, No JVD Peripheral Pulses: 2+ Radial Pulses (R), 2+ Radial Pulses (L) Skin: normal color, warm/dry; No rash Objective Exam Vital Signs Vital Signs Date Time Temp Pulse Resp B/P (MAP) Pulse Ox O2 Delivery O2 Flow Rate FiO2 01/11/19 08:00 97.8 72 20 113/76 (88) 98 Room Air Capillary Refill : Less Than 3 SecondsLess Than 3 Seconds General Appearance: No Apparent Distress, WD/WN Neck: Full Range of Motion, Normal Inspection Respiratory: Chest Non Tender, Lungs Clear, Normal Breath Sounds, No Accessory Muscle Use, No Respiratory Distress Cardiovascular: Regular Rate, Rhythm, No Edema, No JVD, Normal Peripheral Pulses Gastrointestinal: Tenderness Skin: Normal Color, Warm/Dry; No Rash Results/Procedures Lab Laboratory Tests 01/11/19 05:14 Patient resulted labs reviewed. Assessment/Plan Assessment and Plan Assess & Plan/Chief Complaint Assessment: 1. Ascending Cholangitis 2. Allergic Reaction to new medication 3. Primary Biliary Cirrhosis 4. Irritable [place] Disease (Crohn or UC) 5. Choledocholithiasis 6. Acute Pancreatitis 7. Kidney Stone 8. Hepatitis (A,B,C, Autoimmune) 9. Acute Intermittent Porphyria 10. Celiac Disease 11. C-diff 12. Adhesions 13. M.S 14. Viral or Bacterial infection Plan: 1. Stop Zoloft and Control 2. ANCA Test 3. ESR 4. Stool Sample and C-diff toxin test 5. Colonoscopy (possibly out patient) 6. Continue on IV fluids and keep patient NPO until inflammation of bowel regresses 7. Continue on Antibiotics 8. Monitor labs (CBC w/diff, CMP) 9. Continue monitoring vitals q6 10. Steroid treatment 11. Continue to monitor patients pain once steroids begin 12. Restart SSRI fore depression 13. have patient ambulating more Clinical Quality Measures DVT/VTE Risk/Contraindication: Risk Factor Score Per Nursin RFS Level Per Nursing on Admit: 2=Moderate KYLEIGH HONEYCUTT DO 01/11/192109: Subjective Subjective/Events-last exam Lovenox may be needed unless she gets to ambulate a lot more in the halls Clear liquid diet now No BM yet Steroids will be initiated by Dr. Pacheco due to the colitis since it appears to be inflammatory bowel disease Will restart low dose Zoloft to 25 mg she's requesting Review of Systems General: Fatigue Gastrointestinal: Abdominal Pain Objective Exam General Appearance: No Apparent Distress, WD/WN Respiratory: Chest Non Tender, Lungs Clear, Normal Breath Sounds, No Accessory Muscle Use, No Respiratory Distress Cardiovascular: Regular Rate, Rhythm, No Edema, No Gallop, No JVD, No Murmur, Normal Peripheral Pulses Gastrointestinal: Tenderness Neurologic/Psychiatric: Alert, Oriented x3, No Motor/Sensory Deficits, Depressed Affect Skin: Normal Color, Warm/Dry Assessment/Plan Assessment and Plan Assess & Plan/Chief Complaint Assessment: Pancolitis suspicious for IBD versus infectious Steroids Monitor closely Needs endo outpatient IV abx Diagnosis/Problems Diagnosis/Problems (1) Acute colitis Status: Acute (2) Nausea & vomiting Status: Acute Qualifiers: Qualified Codes: R11.14 - Bilious vomiting (3) RUQ abdominal pain Status: Acute (4) Smoker Status: Chronic Supervisory-Addendum Brief Verification & Attestation Participated in pt care: history, MDM, physical Personally performed: exam, history, MDM, supervision of care Care discussed with: Medical Student Procedures: n/a Results interpretation: Verified all documentation Verification and Attestation of Medical Student E/M Service A medical student performed and documented this service in my presence. I reviewed and verified all information documented by the medical student and made modifications to such information, when appropriate. I personally performed the physical exam and medical decision making. Kyleigh Honeycutt, Jan 11, 2019,21:10 [facility] Jan 11, 2019 11:08 KYLEIGH HONEYCUTT DO Jan 11, 2019 21:10
--- NOTE | 2019-01-11 11:42 | NUR ---
Pt is Advent. Declines sacraments. Rn Social Work offered blessing.
[2019-01-11 16:59] VITALS: BP 109/69
[2019-01-11] MEDS: CALCIUM CARBONATE 500 MG (TUMS) TAB.CHEW PO PRN ×2 (18:55→21:14)
[2019-01-11] MEDS: SERTRALINE 50 MG (ZOLOFT) TABLET PO SCH (21:08)
[2019-01-11] MEDS: ENOXAPARIN 40 MG/0.4 ML (LOVENOX) SYR SC SCH (21:08)
[2019-01-11] MEDS: cefTRIAXone 1,000 MG/SWFI 10 ML IV PUSH IV SCH ×2 (23:38)
[2019-01-12] VITALS: BP 95/60
[2019-01-12] MEDS: NS W/KCL 20 MEQ/L 1,000 ML IV SCH (05:11)
[2019-01-12] MEDS: predniSONE 20 MG TAB PO SCH (05:29)
[2019-01-12 05:47] LABS: BASOPHILS % (AUTO) 0 % (0-10); EOSINOPHILS % (AUTO) 0 % (0-10); HEMATOCRIT 38 % (35-52); HEMOGLOBIN 13.2 G/DL (11.5-16.0); LYMPHOCYTES # (AUTO) 2.6 X 10^3 (1.0-4.0); LYMPHOCYTES % (AUTO) 34 % (12-44); MEAN CORPUSCULAR HEMOGLOBIN 31 PG (25-34); MEAN CORPUSCULAR HGB CONC 35 G/DL (32-36); MEAN CORPUSCULAR VOLUME 90 FL (80-99); MEAN PLATELET VOLUME 10.5 FL (7.4-10.4); MONOCYTES # (AUTO) 0.5 X 10^3 (0.0-1.0); MONOCYTES % (AUTO) 6 % (0-12); NEUTROPHILS # (AUTO) 4.5 X 10^3 (1.8-7.8); NEUTROPHILS % (AUTO) 59 % (42-75); PLATELET COUNT 205 10^3/uL (130-400); RED CELL DISTRIBUTION WIDTH 11.6 % (10.0-14.5); WHITE BLOOD COUNT 7.7 10^3/uL (4.3-11.0)
[2019-01-12 06:28] LABS: ALANINE AMINOTRANSFERASE 30 U/L (0-55); ALBUMIN 3.2 GM/DL (3.2-4.5); ALKALINE PHOSPHATASE 70 U/L (40-136); BILIRUBIN,TOTAL 0.4 MG/DL (0.1-1.0); BUN/CREATININE RATIO 8; CALCIUM 8.4 MG/DL (8.5-10.1); CARBON DIOXIDE 20 MMOL/L (21-32); CHLORIDE 111 MMOL/L (98-107); GFR ESTIMATED > 60; GLUCOSE 94 MG/DL (70-105); SODIUM 139 MMOL/L (135-145); TOTAL PROTEIN 5.5 GM/DL (6.4-8.2)
[2019-01-12 08:00] VITALS: BP 116/74
--- NOTE | 2019-01-12 09:25 | Progress Note - Surgery ---
TRACEY,MARY,MED STUDENT 01/12/19 0925: Subjective Date Seen by a Provider: Jan 12, 2019 Time Seen by a Provider: 08:45 Subjective/Events-last exam Patient reports feeling much better today since starting oral steroids. Her abdominal pain is now a 2/10, down from 6/10 yesterday. She now describes it as "just a dull ache". She admits to some nausea yesterday after infusion of antibiotics, but this has since improved. No new complaints or concerns. Denies chest pain, shortness of breath, vomiting, or diarrhea. She wishes to go home today. No family at bedside. Objective Exam Vital Signs Date Time Temp Pulse Resp B/P (MAP) Pulse Ox O2 Delivery O2 Flow Rate FiO2 01/12/19 00:00 98.7 61 24 95/60 (72) 97 Room Air 01/11/19 20:00 Room Air 01/11/19 16:59 98.9 89 18 109/69 (82) 98 Room Air I & O 01/12/19 07:00 Intake Total 3019 ml Balance 3019 ml Capillary Refill : Less Than 3 SecondsLess Than 3 Seconds General Appearance: No Apparent Distress, WD/WN HEENT: PERRL/EOMI, Pharynx Normal Neck: Full Range of Motion, Normal Inspection, Non Tender Respiratory: Chest Non Tender, No Accessory Muscle Use, No Respiratory Distress Cardiovascular: Regular Rate, Rhythm, Normal Peripheral Pulses Peripheral Pulses: 2+ Radial Pulses (R), 2+ Radial Pulses (L) Gastrointestinal: soft, tenderness (mildly tender RUQ and epigastric region, improved from previous exam) Extremity: Normal Capillary Refill, Normal Inspection, Normal Range of Motion, Non Tender, No Calf Tenderness Neurologic/Psychiatric: Alert, Oriented x3, No Motor/Sensory Deficits Skin: Normal Color, Warm/Dry Lymphatic: No Adenopathy Results Lab Laboratory Tests 01/12/19 05:25: White Blood Count 7.7, Red Blood Count 4.25L, Hemoglobin 13.2, Hematocrit 38, Mean Corpuscular Volume 90, Mean Corpuscular Hemoglobin 31, Mean Corpuscular Hem oglobin Concent 35, Red Cell Distribution Width 11.6, Platelet Count 205, Mean Platelet Volume 10.5H, Neutrophils (%) (Auto) 59, Lymphocytes (%) (Auto) 34, Monocytes (%) (Auto) 6, Eosinophils (%) (Auto) 0, Basophils (%) (Auto) 0, Neutr ophils # (Auto) 4.5, Lymphocytes # (Auto) 2.6, Monocytes # (Auto) 0.5, Eosinophils # (Auto) 0.0, Basophils # (Auto) 0.0, Sodium Level 139, Potassium Level 4.0, Chloride Level 111H, Carbon Dioxide Level 20L, Anion Gap 8, Blood Urea Nitrogen 6L, Creatinine 0.80, Estimat Glomerular Filtration Rate > 60, BUN/Creatinine Ratio 8, Glucose Level 94, Calcium Level 8.4L, Corrected Calcium 9.0, Total Bilirubin 0.4, Aspartate Amino Transf (AST/SGOT) 17, Alanine Aminotransferase (ALT/SGPT) 30, Alkaline Phosphatase 70, Total Protein 5.5L, Albumin 3.2 Assessment/Plan Assessment/Plan Assessment/Plan right upper quadrant and left lower quadrant abdominal pain Nausea and vomiting Colitis of the ascending and proximal transverse colon Continue abx and steroids with taper Advance diet to dysphagia 2 Okay to discharge home later today or early tomorrow Will need colonoscopy outpatient Follow up with GI specialist for possible IBD Clinical Quality Measures DVT/VTE Risk/Contraindication: Risk Factor Score Per Nursin RFS Level Per Nursing on Admit: 2=Moderate ASHVIN PACHECO DO 01/12/19 1655: Subjective Subjective/Events-last exam feeling better today. no nausea or emesis. pain 2/ 10 ache but feeling much better. No other new complaints. denies n/v fever sweats chills shortness of breath or chest pain. Objective Exam General Appearance: No Apparent Distress HEENT: PERRL/EOMI Neck: Full Range of Motion, Normal Inspection, Non Tender Respiratory: Chest Non Tender, No Accessory Muscle Use, No Respiratory Distress Cardiovascular: Regular Rate, Rhythm Gastrointestinal: soft, tenderness (minimal ruq) Extremity: Non Tender, No Calf Tenderness Neurologic/Psychiatric: Alert, Oriented x3 Skin: Normal Color, Warm/Dry Lymphatic: No Adenopathy Assessment/Plan Assessment/Plan Assessment/Plan right upper quadrant and left lower quadrant abdominal pain Nausea and vomiting Colitis of the ascending and proximal transverse colon patient advance diet as tolerates pain improved with steroids-taper colonoscopy outpatient home soon Supervisory-Addendum Brief Verification & Attestation Participated in pt care: history, MDM, physical Personally performed: exam, history, MDM, supervision of care Care discussed with: Medical Student Procedures: n/a Results interpretation: Verified all documentation Verification and Attestation of Medical Student E/M Service A medical student performed and documented this service in my presence. I reviewed and verified all information documented by the medical student and made modifications to such information, when appropriate. I personally performed the physical exam and medical decision making. Ashvin Pacheco, Jan 12, 2019,16:55 MARY WEBB,MED STUDENT Jan 12, 2019 09:25 ASHVIN PACHECO DO Jan 12, 2019 16:55
[2019-01-12] MEDS: metroNIDAZOLE 500 MG/100 ML IVPB (PRE-MIX) IV SCH ×2 (10:12→16:29)
[2019-01-12] MEDS ORDERED: POLYETHYLENE GLYCOL 17 GM (MIRALAX) PACK PO NR (10:30)
--- NOTE | 2019-01-12 11:07 | Progress Note - Hospitalist ---
[facility] [place] 01/12/19 1107: Subjective HPI/CC On Admission Date Seen by Provider: Jan 12, 2019 Time Seen by Provider: 07:30 Chief complaint: Abdominal pain HPI: This is a 33yoWF with a past medical history of severe depression who was placed on new medication for depression two weeks ago but began having abdominal pain without diarrhea or melena. CT scan in the ER at [place] was obtained showing mishra colitis so she was placed on Rocephin and Flagyl in addition Dr. Pacheco will be consulted. No surgical emergency noted but she will need endoscopy ultimately. C-Diff is pending. Abdominal pain is such improved and the last BM was the day before yesterday. Subjective/Events-last exam Patient was alert and oriented with no distress Patient is finally sleeping and the abdominal pain is less today than it has been in the past. No pain outside of the abdomen Patient is currently on a clear liquid diet and will advance today to see about bowel progress. Patient has been urinating and has not had a bowel movement ROS: Abdominal pain is still present but better, denied chest pain, denied fever and chills, denied N/V, Has no skin rash present. Vitals: Stable Lungs: LCTAB Heart: HRRR Abdomen: Bowel sounds present, Tender to touch Labs: Stable Focused Exam Respiratory: Chest Non Tender, Lungs Clear, Normal Breath Sounds, No Accessory Muscle Use, No Respiratory Distress Cardiovascular: Regular Rate, Rhythm, No Edema, No JVD Peripheral Pulses: 2+ Radial Pulses (R), 2+ Radial Pulses (L) Skin: normal color, warm/dry Objective Exam Vital Signs Vital Signs Date Time Temp Pulse Resp B/P (MAP) Pulse Ox O2 Delivery O2 Flow Rate FiO2 01/12/19 08:00 97.3 56 20 116/74 (88) 99 Room Air Capillary Refill : Less Than 3 SecondsLess Than 3 Seconds General Appearance: No Apparent Distress, WD/WN Neck: Full Range of Motion, Normal Inspection Cardiovascular: Regular Rate, Rhythm, No Edema, No JVD Gastrointestinal: Normal Bowel Sounds, Tenderness Extremity: Normal Capillary Refill Neurologic/Psychiatric: Alert, Oriented x3 Skin: Normal Color, Warm/Dry Results/Procedures Lab Laboratory Tests 01/12/19 05:25 Patient resulted labs reviewed. Assessment/Plan Assessment and Plan Assess & Plan/Chief Complaint Assessment: 1. Ascending Cholangitis 2. Allergic Reaction to new medication 3. Primary Biliary Cirrhosis 4. Irritable Zhao Disease (Crohn or UC) 5. Choledocholithiasis 6. Acute Pancreatitis 7. Kidney Stone 8. Hepatitis (A,B,C, Autoimmune) 9. Acute Intermittent Porphyria 10. Celiac Disease 11. C-diff 12. Adhesions 13. M.S 14. Viral or Bacterial infection Plan: 1. Stop Zoloft and Control 2. ANCA Test 3. ESR 4. Stool Sample and C-diff toxin test 5. Colonoscopy (possibly out patient) 6. Continue on IV fluids and keep patient NPO until inflammation of bowel regresses 7. Continue on Antibiotics 8. Monitor labs (CBC w/diff, CMP) 9. Continue monitoring vitals q6 10. Steroid treatment 11. Continue to monitor patients pain once steroids begin 12. Restart SSRI fore depression 13. Have patient ambulating more 14. Advance diet to see how patient tolerates 15. DC antibiotics 16. Start bowel regimen Clinical Quality Measures DVT/VTE Risk/Contraindication: Risk Factor Score Per Nursin RFS Level Per Nursing on Admit: 2=Moderate KYLEIGH HONEYCUTT DO 01/12/19 2100: Subjective Subjective/Events-last exam No bowel movement yet Dr. Pacheco reviewed everything it seems steroids are really helping her He needs endoscopy as an outpatient Advancing diet Goes to [facility] for medications at discharge Review of Systems Gastrointestinal: Abdominal Pain Objective Exam General Appearance: No Apparent Distress, WD/WN Respiratory: Chest Non Tender, Lungs Clear, Normal Breath Sounds, No Accessory Muscle Use, No Respiratory Distress Cardiovascular: Regular Rate, Rhythm, No Edema, No Gallop, No JVD, No Murmur, N ormal Peripheral Pulses Gastrointestinal: Normal Bowel Sounds, No Organomegaly, No Pulsatile Mass, Soft, Tenderness Neurologic/Psychiatric: Alert, Oriented x3, No Motor/Sensory Deficits, Depressed Affect Assessment/Plan Assessment and Plan Assess & Plan/Chief Complaint Advance diet Steroids DC home tomorrow Diagnosis/Problems Diagnosis/Problems (1) Acute colitis Status: Acute (2) Nausea & vomiting Status: Acute Qualifiers: Qualified Codes: R11.14 - Bilious vomiting (3) Smoker Status: Chronic Supervisory-Addendum Brief Verification & Attestation Participated in pt care: history, MDM, physical Personally performed: exam, history, MDM, supervision of care Care discussed with: Medical Student Procedures: n/a Results interpretation: Verified all documentation Verification and Attestation of Medical Student E/M Service A medical student performed and documented this service in my presence. I reviewed and verified all information documented by the medical student and made modifications to such information, when appropriate. I personally performed the physical exam and medical decision making. Kyleigh Honeycutt, Jan 12, 2019,21:00 [facility] [place] Jan 12, 2019 11:07 KYLEIGH HONEYCUTT DO Jan 12, 2019 21:00
[2019-01-12 16:40] VITALS: BP 127/77
[2019-01-12] MEDS: ENOXAPARIN 40 MG/0.4 ML (LOVENOX) SYR SC SCH (20:48)
[2019-01-12] MEDS: SERTRALINE 50 MG (ZOLOFT) TABLET PO SCH (20:49)
[2019-01-12] MEDS: ONDANSETRON 4 MG/2 ML (SDV) Z0FRAN IV PRN (20:52)
[2019-01-12] MEDS ORDERED: POLYETHYLENE GLYCOL 17 GM (MIRALAX) PACK PO SCH (21:00)
[2019-01-13] MEDS: cefTRIAXone 1,000 MG/SWFI 10 ML IV PUSH IV SCH ×2 (00:19)
[2019-01-13 00:20] VITALS: BP 101/61
[2019-01-13] MEDS: metroNIDAZOLE 500 MG/100 ML IVPB (PRE-MIX) IV SCH ×2 (00:20→08:00)
[2019-01-13] MEDS: ONDANSETRON 4 MG/2 ML (SDV) Z0FRAN IV PRN ×2 (00:25→08:42)
[2019-01-13] MEDS: predniSONE 20 MG TAB PO SCH (06:46)
[2019-01-13 08:00] VITALS: BP 121/65
--- NOTE | 2019-01-13 10:26 | Progress Note - Surgery ---
Subjective Time Seen by a Provider: 10:01 Subjective/Events-last exam Pt seen and examined, denies any pain but states she has some nausea. She is tolerating diet. Having normal BM's. Review of Systems Pulmonary: No Dyspnea, No Cough Cardiovascular: No: Chest Pain, Palpitations Gastrointestinal: Nausea; No: Vomiting Objective Exam Vital Signs Date Time Temp Pulse Resp B/P (MAP) Pulse Ox O2 Delivery O2 Flow Rate FiO2 01/13/19 08:00 Room Air 01/13/19 08:00 97.4 63 16 121/65 (83) 98 Room Air 01/13/19 00:20 98.3 84 18 101/61 (74) 97 Room Air 01/12/19 20:50 Room Air 01/12/19 16:40 99.3 80 18 127/77 (94) 97 Room Air I & O 01/13/19 07:00 Intake Total 4220 ml Output Total 2600 ml Balance 1620 ml Capillary Refill : Less Than 3 SecondsLess Than 3 Seconds General Appearance: No Apparent Distress, WD/WN HEENT: PERRL/EOMI Respiratory: Chest Non Tender, Lungs Clear, Normal Breath Sounds, No Accessory Muscle Use, No Respiratory Distress Cardiovascular: Regular Rate, Rhythm, No Edema, No Gallop, No JVD, No Murmur, Normal Peripheral Pulses Peripheral Pulses: 2+ Radial Pulses (R), 2+ Radial Pulses (L) Gastrointestinal: soft, no organomegaly; No distended; tenderness (minimal ruq) Extremity: Non Tender, No Calf Tenderness Neurologic/Psychiatric: Alert, Oriented x3, No Motor/Sensory Deficits, Depressed Affect Skin: Normal Color, Warm/Dry Results Lab Laboratory Tests 01/12/19 16:30: Stool Occult Blood Immunoassay NEGATIVE Microbiology 01/12/19 C. difficile GDH Antigen & Toxins - Final, Resulted 01/12/19 Stool Culture, Resulted Pending Assessment/Plan Assessment/Plan Assessment/Plan Right sided Colitis Plan to D/C pt home with some zofran for nausea, should have colonoscopy as an outpt. Clinical Quality Measures DVT/VTE Risk/Contraindication: Risk Factor Score Per Nursin RFS Level Per Nursing on Admit: 2=Moderate AL SARGENT DO Jan 13, 2019 10:26
[2019-01-13] MEDS ORDERED: AMOX-358 PO (10:28)
[2019-01-13] MEDS ORDERED: ONDA4TAB11 PO (10:28)
--- NOTE | 2019-01-13 10:31 | Discharge Inst-Surgical ---
Discharge Inst-Surgical Depart Medication/Instructions New, Converted or Re-Newed RX: Transmitted to Pharmacy Patient Instructions Follow up Appt: Make appointment for 1 week, with Dr. Pacheco. [phone] Instructions: No strenuous activity. May shower in 24 hours, no tub bath or soaking. Use incentive spirometer at home as directed. No Smoking Symptoms to Report: Appetite Changes, Extremity Discoloration, Numbness/Tingling, Swelling Increased, Bleeding Excessive, Eyesight Changes, Pain Increased, Urine Color Change, Constipation(Persistent), Fever over 101 degree F, Pain/Pressure in chest, Urinating Difficulty, Cough Up/Vomit Blood, Heart Beat Irreg/Pounding, Pain/Pressure in jaw, Cramps in feet or legs, Lightheadedness, Pain/Pressure in shoulder, Diarrhea(Persistent), Memory Changes Suddenly, Questions/Concerns, Weight gain consecutive days, Dizziness/Fainting, Nausea/Vomiting, Shortness of Breath, Weight gain over 2 pounds If questions or concerns contact your physician Or seek help at emergency department. Activity Activity as Tolerated: Yes Diet Discharge Diet: No Restrictions Diet After 24 Hours: Clear Liquid if Nauseous If Any Problems/Questions/Issu: Contact Your Physician, Go to Emergency Room Skin/Wound Care Infection Signs and Symptoms: Increased Swelling, Temperature Above 101 F Bathing Instructions: AL Cabrales DO Jan 13, 2019 10:31
--- NOTE | 2019-01-13 11:15 | Discharge Summary ---
Diagnosis/Chief Complaint Date of Admission Jan 11, 2019 at 13:38 Date of Discharge Discharge Date: Jan 13, 2019 Admission Diagnosis Assessment: Pancolitis Depression Obesity Smoker Plan: Abx Check C diff Appreciate Dr Pacheco help Primary Care Discharge Diagnosis (1) Acute colitis Status: Acute (2) Nausea & vomiting Status: Acute (3) Smoker Status: Chronic Discharge Summary Discharge Physical Exam Allergies: Coded Allergies: shellfish derived (Verified Allergy, Unknown, 01/09/19) Vitals & I&Os Vital Signs Date Time Temp Pulse Resp B/P (MAP) Pulse Ox O2 Delivery O2 Flow Rate FiO2 01/13/19 08:00 Room Air 01/13/19 08:00 97.4 63 16 121/65 (83) 98 General Appearance: No Apparent Distress, WD/WN, Chronically ill Respiratory: Chest Non Tender, Lungs Clear, Normal Breath Sounds, No Accessory Muscle Use, No Respiratory Distress Cardiovascular: Regular Rate, Rhythm, No Edema, No Gallop, No JVD, No Murmur, Normal Peripheral Pulses Gastrointestinal: Normal Bowel Sounds, No Organomegaly, No Pulsatile Mass, Non Tender, Soft Neurologic/Psychiatric: Alert, Oriented x3, No Motor/Sensory Deficits, Depressed Affect Hospital Course Course: patient had a brief hospital course due to abdominal pain and CT revealed pancolitis. C diff was negative and Dr Pacheco was consulted and steroids were initiated empirically and improved status enough to be able to regain bowel function and was agreeable for DC with close f/u for colonoscopy. Labs (last 24 hrs) Laboratory Tests 01/12/19 16:30: Stool Occult Blood Immunoassay NEGATIVE Microbiology 01/12/19 C. difficile GDH Antigen & Toxins - Final, Resulted 01/12/19 Stool Culture, Resulted Pending Patient resulted labs reviewed. Discussion & Recommendations Discharge Planning: <30 minutes discharge planning Discharge Home Medications: Active Scripts Active Augmentin 875-125 Tablet (Amoxicillin/Potassium Clav) 1 Each Tablet 1 Each PO BID Ondansetron Odt (Ondansetron) 4 Mg Tab.rapdis 4 Mg PO Q8H Reported Taytulla 1 mg-20 Mcg Capsule (Norethindrone-E.estradiol-Iron) 1 Each Capsule 1 Cap PO DAILY Sertraline HCl 25 Mg Tablet 25 Mg PO HS Instructions to patient/family Please see electronic discharge instructions given to patient. Clinical Quality Measures DVT/VTE Risk/Contraindication: Risk Factor Score Per Nursin RFS Level Per Nursing on Admit: 2=Moderate Problem Qualifiers (1) Nausea & vomiting: Vomiting type: bilious vomiting Qualified Codes: R11.14 - Bilious vomiting MICHELLE HONEYCUTT DO Jan 13, 2019 11:15
== END 2019-01-13 12:15 | disposition home or self-care (01) | DRG 392 ==
LOC: ER FS 21:39 → 4TH 21:40 → UNDOADMOB 01-10 00:24 → 4TH 01-10 00:24 → OBSVTOIN 01-11 13:38 → INTOOBSV 01-11 13:38 → OBSVTOIN 01-11 13:40 → UNDODISIN 01-13 12:15
PROVIDERS: ADMIT Internal Medicine; ATTEND Internal Medicine
DX: K52.9 Noninfective gastroenteritis and colitis, unspecified (principal); K58.9 Irritable bowel syndrome, unspecified; R11.14 Bilious vomiting; D27.9 Benign neoplasm of unspecified ovary; E87.6 Hypokalemia; R21 Rash and other nonspecific skin eruption; E66.9 Obesity, unspecified; F41.9 Anxiety disorder, unspecified; F17.200 Nicotine dependence, unspecified, uncomplicated; F32.9 Major depressive disorder, single episode, unspecified; Z79.3 Long term (current) use of hormonal contraceptives; Z79.899 Other long term (current) drug therapy; Z68.33 Body mass index [BMI] 33.0-33.9, adult
CPT/HCPCS: 36415; 74176; 80048; 80053; 81000; 82274; 83690; 84703; 85025; 87015; 87045; 87046; 87324; 87449; 87899; G0378

== ENCOUNTER 2019-02-14 05:38 | Outpatient (CLI) | payer BC ==
[~2019-02-14] VITALS: Ht 172.7 cm; Wt 102.2 kg
[~2019-02-14 05:38] MED LIST: AMOX-358 PO; BIRTH CONTROL; NORE1CAP PO; ONDA4TAB11 PO; SERT25TA5 PO
[2019-02-14] MEDS ORDERED: SERT50TA9 PO (14:05)
== END 2019-02-14 14:14 | disposition home or self-care (01) ==
LOC: PREOP 05:38
PROVIDERS: ATTEND Surgery
DX: Z01.818 Encounter for other preprocedural examination (principal)

== ENCOUNTER 2019-02-20 12:56 | Day surgery (SDC) | payer BC ==
[2019-02-20] VITALS (7 sets, daily range): BP systolic 104–119; BP diastolic 59–76
[~2019-02-20] VITALS: Ht 172.2 cm; Wt 102.2 kg
[~2019-02-20 12:56] MED LIST changes: +SERT50TA9 PO
[2019-02-20] MEDS ORDERED: LACTATED RINGERS 1,000 ML IV ONE (13:00)
[2019-02-20] MEDS ORDERED: LACTATED RINGERS 1,000 ML IV STA (13:04)
[2019-02-20] MEDS ORDERED: proPOfol 200 MG/20 ML (DIPRIVAN) VIAL IV ONE ×2 (13:25→13:49)
[2019-02-20] MEDS ORDERED: MIDAZOLAM 2 MG/2 ML (VERSED) VIAL ONE (13:25)
--- NOTE | 2019-02-20 13:34 | Progress Note-Pre Operative ---
Pre-Operative Progress Note H&P Reviewed The H&P was reviewed, patient examined and no changes noted. Date Seen by Provider: Feb 20, 2019 Time Seen by Provider: 13:33 Date H&P Reviewed: Feb 20, 2019 Time H&P Reviewed: 13:33 Pre-Operative Diagnosis: Hx of Colitis ASHVIN CULLEN DO Feb 20, 2019 13:34
--- NOTE | 2019-02-20 14:05 | Progress Note-Post Operative ---
Post-Operative Progess Note Surgeon (s)/Podopediatrician (s) Surgeon ASHVIN CULLEN DO Podopediatrician: na Pre-Operative Diagnosis Hx of Colitis Post-Operative Diagnosis low grade colitis right colon Procedure & Operative Findings Date of Procedure 02/20/19 Procedure Performed/Findings colonoscopy c cold biopsies Anesthesia Type per mda Estimated Blood Loss Estimated blood loss (mL): none Specimens/Packing Specimens Removed cecum and ascending colon cold biopsies ASHVIN CULLEN DO Feb 20, 2019 14:05
--- NOTE | 2019-02-20 14:09 | Discharge Inst-Simple/Standard ---
Discharge Inst-Standard Patient Instructions/Follow Up Plan of Care/Instructions/FU: 2 weeks Tara Activity as Tolerated: Yes Discharge Diet: Regular Diet ASHVIN CULLEN DO Feb 20, 2019 14:09
--- NOTE | 2019-02-20 15:14 | Anesthesia-General Post-Op ---
MAC Patient Condition Mental Status/LOC: Same as Preop Cardiovascular: Satisfactory Nausea/Vomiting: Absent Respiratory: Satisfactory Pain: Controlled Complications: Absent Post Op Complications Complications None Follow Up Care/Instructions Patient Instructions None needed. Anesthesiology Discharge Order Discharge Order Patient is doing well, no complaints, stable vital signs, no apparent adverse anesthesia problems. No complications reported per nursing. NIMA BARRIOS CRNA Feb 20, 2019 15:14
--- NOTE | 2019-02-20 23:09 | OPERATIVE REPORT ---
DATE OF SERVICE: 02/20/2019 PREOPERATIVE DIAGNOSIS: History of colitis. POSTOPERATIVE DIAGNOSIS: Low-grade colitis, right colon. PROCEDURE: Colonoscopy with cold biopsies. SURGEON: Ashvin Pacheco DO ANESTHESIA: Per MDA. ESTIMATED BLOOD LOSS: None. COMPLICATIONS: None. SPECIMENS: Cold biopsy of the cecum and ascending colon. INDICATIONS: The patient is a 33-year-old female with history of colitis. She understands risks and benefits of procedure and wished to proceed with procedure. Consent was signed in the chart. DESCRIPTION OF PROCEDURE: The patient was taken to the endoscopy suite, placed in left lateral recumbent position. Timeout was performed. Digital rectal exam was performed. There were no palpable polyps, masses or ulcerations. Scope was inserted in the rectum and advanced all the way to the cecum with minimal difficulty. The scope was inserted into the ileum with no pathology noted. Scope was returned to its normal position. Some slight mucosal changes of the cecum. Cold biopsy of the cecum was obtained. Scope was then continued to be slowly retracted back. No polyps, masses or ulcerations in the cecum. In the ascending colon, small area of some slight erythematous changes and healing ulceration. Biopsy of this area was obtained. Scope was then continued to be slowly retracted back. There were no polyps, masses or ulcerations in remainder of the ascending, transverse, descending and sigmoid colon. Once in the rectum, scope was retroflexed noting no other pathology. Scope was returned to its normal position, slowly withdrawn until completely removed. The patient tolerated procedure well without any complications. She was taken to recovery room in stable condition. RECOMMENDATIONS: The patient will follow up in the office in 2 weeks. We will await biopsy results. Further recommendations pending results. Job ID: [id number] DocumentID: [id number] Dictated Date: 02/20/2019 16:01:56 Electric Meter Inspector Date: 02/20/2019 23:07:30 Dictated By: ASHVIN PACHECO DO
== END 2019-02-20 14:45 | disposition home or self-care (01) ==
LOC: ENDO 12:56
PROVIDERS: ATTEND Surgery
DX: K52.9 Noninfective gastroenteritis and colitis, unspecified (principal); K63.89 Other specified diseases of intestine; F17.210 Nicotine dependence, cigarettes, uncomplicated; Z79.899 Other long term (current) drug therapy
CPT/HCPCS: 84703; 88305

== ENCOUNTER 2019-07-23 21:08 | Emergency (ER) | payer BC ==
[~2019-07-23] VITALS: Ht 172.7 cm; Wt 105.2 kg
[2019-07-23 21:50] LABS: HEMATOCRIT 43 % (35-52); HEMOGLOBIN 14.8 G/DL (11.5-16.0); MEAN CORPUSCULAR HEMOGLOBIN 30 PG (25-34); MEAN CORPUSCULAR HGB CONC 34 G/DL (32-36); MEAN CORPUSCULAR VOLUME 89 FL (80-99); MEAN PLATELET VOLUME 9.7 FL (7.4-10.4); NEUTROPHILS % (AUTO) 54 % (42-75); PLATELET COUNT 224 10^3/uL (130-400); RED CELL DISTRIBUTION WIDTH 11.7 % (10.0-14.5); WHITE BLOOD COUNT 8.6 10^3/uL (4.3-11.0)
[2019-07-23 21:51] LABS: BASOPHILS # (AUTO) 0.1 10^3/uL (0.0-0.1); BASOPHILS % (AUTO) 1 % (0-10); EOSINOPHILS # (AUTO) 0.2 10^3/uL (0.0-0.3); EOSINOPHILS % (AUTO) 3 % (0-10); LYMPHOCYTES % (AUTO) 35 % (12-44); MONOCYTES # (AUTO) 0.6 X 10^3 (0.0-1.0); MONOCYTES % (AUTO) 7 % (0-12); NEUTROPHILS # (AUTO) 4.7 X 10^3 (1.8-7.8)
[2019-07-23 22:08] LABS: ALKALINE PHOSPHATASE 89 U/L (40-136); BILIRUBIN,TOTAL 0.5 MG/DL (0.1-1.0); BUN/CREATININE RATIO 14; CALCIUM 9.2 MG/DL (8.5-10.1); CARBON DIOXIDE 26 MMOL/L (21-32); CHLORIDE 102 MMOL/L (98-107); CREATININE SERUM 0.81 MG/DL (0.60-1.30); GFR ESTIMATED > 60; GLUCOSE 132 MG/DL (70-105); POTASSIUM 3.8 MMOL/L (3.6-5.0); SODIUM 139 MMOL/L (135-145)
[2019-07-23 22:09] LABS: ALANINE AMINOTRANSFERASE 44 U/L (0-55); LIPASE 33 U/L (8-78); TOTAL PROTEIN 6.6 GM/DL (6.4-8.2)
--- NOTE | 2019-07-23 22:09 | ED Abdominal Pain ---
General Chief Complaint: Abdominal/GI Problems Stated Complaint: ABD PAIN Nursing Triage Note: PT AMBULATE TO ROOM FS05 WITH C/O RIGHT LOWER ABD PAIN THAT RADIATES TO HER RIGHT LOWER BACK. PT STATES SHE TOOK IBUPROFEN THIS MORNING FOR THE PAIN. Sepsis Screen: No Definite Risk Source of Information: Patient History of Present Illness Date Seen by Provider: Jul 23, 2019 Time Seen by Provider: 22:09 Initial Comments 34-year-old female presenting with complaints of right lower quadrant abdominal pain since Tuesday. She states that this radiates around her back. She has been taking ibuprofen for the pain with minimal relief. She denies any vaginal bleeding or discharge. She has no pain with urination. She has had no change in her bowel movements. She has no nausea or vomiting. She states that she has a sharp and at times burning pain in the right lower quadrant. She has had her gallbladder out in the past but still has her appendix. She does have a history of ovarian cysts and had colitis last fall. Allergies and Home Medications Allergies Coded Allergies: shellfish derived (Verified Allergy, Unknown, 01/09/19) Home Medications Hydrocodone Bit/Acetaminophen 1 Tab Tab, 1 EACH PO Q6H PRN for PAIN-SEVERE (8- 10) Prescribed by: MONIKA KOTHARI on 07/24/19 0035 Sertraline HCl 50 Mg Tablet, 50 MG PO HS, (Reported) Patient Home Medication List Home Medication List Reviewed: Yes Review of Systems Review of Systems Constitutional: No chills, No fever; malaise EENTM: No Symptoms Reported Respiratory: No Symptoms Reported Cardiovascular: No Symptoms Reported Gastrointestinal: See HPI, Abdominal Pain (right lower quadrant); Denies Constipated, Denies Diarrhea, Denies Nausea; Poor Appetite; Denies Vomiting Genitourinary: Denies Burning, Denies Discharge, Denies Frequency; Flank Pain (right side) Musculoskeletal: no symptoms reported Skin: No rash Psychiatric/Neurological: Denies Headache, Denies Numbness Past Ojcmkpo-Vybfjt-Yuiyyk Hx Past Med/Social Hx: Reviewed Nursing Past Med/Soc Hx Patient Social History Alcohol Use: Occasionally Uses Recreational Drug Use: No Smoking Status: Current Everyday Smoker Type Used: Cigarettes 2nd Hand Smoke Exposure: Yes Recent Foreign Travel: No Contact w/Someone Who Travel: No Recent Infectious Disease Expo: No Recent Hopitalizations: No Physical Abuse: No Sexual Abuse: No Mistreated: No Fear: No Immunizations Up To Date Tetanus Booster (TDap): Unknown Seasonal Allergies Seasonal Allergies: No Past Medical History Surgeries: Yes (cardiac ablation, c/s x3) Cardiac, Section, Gallbladder Respiratory: No Currently Using CPAP: No Cardiac: Yes (hx SVT had ablation no issues now) Neurological: No Female Reproductive Disorders: Denies, Ovarian Cyst Sexually Transmitted Disease: No HIV/AIDS: No Genitourinary: No Gastrointestinal: Yes Colitis Musculoskeletal: No Endocrine: No HEENT: No Loss of Vision: Denies Hearing Impairment: Denies Cancer: No Psychosocial: Yes Depression Integumentary: No Blood Disorders: No Family Medical History Diabetes mellitus 19 FATHER G8 BROTHER No Pertinent Family Hx Father: at 64, had diabetes, CHF, Cirrhosis of the liver, peripheral neuropathy Mother: still alive, hx of breast cancer, uterine cancer and RA Brother: diabetes Physical Exam Vital Signs Vital Signs - First Documented 07/23/19 07/24/19 21:25 00:48 Temp 37.1 Pulse 112 Resp 20 B/P (MAP) 111/78 (89) Pulse Ox 100 O2 Delivery Room Air Capillary Refill : Less Than 3 Seconds Height/Weight/BMI Height: 5'7.00" Weight: 215lbs. 0.0oz. [id number]; 35.00 BMI Method:Stated General Appearance: WD/WN, mild distress HEENT: PERRL/EOMI, pharynx normal Neck: non-tender, full range of motion, supple, normal inspection Respiratory: chest non-tender, lungs clear, normal breath sounds, no respiratory distress, no accessory muscle use Cardiovascular: normal peripheral pulses, regular rate, rhythm Gastrointestinal: normal bowel sounds, soft, no pulsatile mass; No distended, No guarding, No rebound; tenderness (right lower quadrant, suprapubic, and left lower quadrant); No mass Rectal: deferred Extremities: normal range of motion, non-tender, normal capillary refill Back: no CVA tenderness Neurologic/Psychiatric: pipe cleaner II-XII nml as tested, alert, oriented x 3 Skin: normal color, warm/dry Progress/Results/Core Measures Results/Orders Lab Results Laboratory Tests Test 07/23/19 21:15 07/23/19 21:43 Range/Units Urine Color YELLOW Urine Clarity CLEAR Urine pH 7.0 5-9 Urine Specific Calvin 1.010 L 1.016-1.022 Urine Protein NEGATIVE NEGATIVE Urine Glucose (UA) NEGATIVE NEGATIVE Urine Ketones NEGATIVE NEGATIVE Urine Nitrite NEGATIVE NEGATIVE Urine Bilirubin NEGATIVE NEGATIVE Urine Urobilinogen 0.2 < = 1.0 MG/DL Urine Leukocyte Esterase TRACE H NEGATIVE Urine RBC (Auto) NEGATIVE NEGATIVE Urine RBC 0-2 /HPF Urine WBC 0-2 /HPF Urine Squamous Epithelial Cells 2-5 /HPF Urine Crystals NONE /LPF Urine Bacteria TRACE /HPF Urine Casts NONE /LPF Urine Mucus NONE /LPF Urine Culture Indicated NO White Blood Count 8.6 4.3-11.0 10^3/uL Red Blood Count 4.86 4.35-5.85 10^6/uL Hemoglobin 14.8 11.5-16.0 G/DL Hematocrit 43 35-52 % Mean Corpuscular Volume 89 80-99 FL Mean Corpuscular Hemoglobin 30 25-34 PG Mean Corpuscular Hemoglobin Concent 34 32-36 G/DL Red Cell Distribution Width 11.7 10.0-14.5 % Platelet Count 224 130-400 10^3/uL Mean Platelet Volume 9.7 7.4-10.4 FL Neutrophils (%) (Auto) 54 42-75 % Lymphocytes (%) (Auto) 35 12-44 % Monocytes (%) (Auto) 7 0-12 % Eosinophils (%) (Auto) 3 0-10 % Basophils (%) (Auto) 1 0-10 % Neutrophils # (Auto) 4.7 1.8-7.8 X 10^3 Lymphocytes # (Auto) 3.0 1.0-4.0 X 10^3 Monocytes # (Auto) 0.6 0.0-1.0 X 10^3 Eosinophils # (Auto) 0.2 0.0-0.3 10^3/uL Basophils # (Auto) 0.1 0.0-0.1 10^3/uL Sodium Level 139 135-145 MMOL/L Potassium Level 3.8 3.6-5.0 MMOL/L Chloride Level 102 98-107 MMOL/L Carbon Dioxide Level 26 21-32 MMOL/L Anion Gap 11 5-14 MMOL/L Blood Urea Nitrogen 11 7-18 MG/DL Creatinine 0.81 0.60-1.30 MG/DL Estimat Glomerular Filtration Rate > 60 BUN/Creatinine Ratio 14 Glucose Level 132 H 70-105 MG/DL Calcium Level 9.2 8.5-10.1 MG/DL Corrected Calcium 9.2 8.5-10.1 MG/DL Total Bilirubin 0.5 0.1-1.0 MG/DL Aspartate Amino Transf (AST/SGOT) 25 5-34 U/L Alanine Aminotransferase (ALT/SGPT) 44 0-55 U/L Alkaline Phosphatase 89 40-136 U/L Total Protein 6.6 6.4-8.2 GM/DL Albumin 4.0 3.2-4.5 GM/DL Lipase 33 8-78 U/L My Orders Orders - MONIKA KOTHARI MD Ua Culture If Indicated (07/23/19 21:22) Urine Bedside (07/23/19 21:25) Comprehensive Metabolic Panel (07/23/19 21:29) Lipase (07/23/19 21:29) Ed Iv/Invasive Line Start (07/23/19 21:29) Cbc With Automated Diff (07/23/19 21:29) Ct Abdomen/Pelvis Wo (07/23/19 22:40) Ns Iv 1000 Ml (Sodium Chloride 0.9%) (07/23/19 22:56) Ketorolac Injection (Toradol Injection) (07/23/19 22:56) Fentanyl Injection (Sublimaze Injection (07/23/19 22:56) Fentanyl Injection (Sublimaze Injection (07/24/19 00:29) Rx-Hydrocodone/Apap 5-325 Mg (Rx-Vicodin (07/24/19 00:30) Medications Given in ED Current Medications Medications Dose Ordered Sig/Martinez Route Start Time Stop Time Status Last Admin Dose Admin Acetaminophen/ Hydrocodone Bitart 1 ea Q6H PRN PO 07/24/19 00:30 07/24/19 00:56 DC 07/24/19 00:45 1 EA Vital Signs/I&O 07/23/19 07/24/19 21:25 00:48 Temp 37.1 Pulse 112 72 Resp 20 19 B/P (MAP) 111/78 (89) 139/78 Pulse Ox 100 O2 Delivery Room Air Room Air Blood Pressure Mean: 89 Progress Progress Note #1: Progress Note Obtain basic labs as well as urinalysis and CT scan of abdomen and pelvis. Try giving IV fluids for hydration along with Toradol and fentanyl for pain. Progress Note #2: Progress Note Labs are all stable without acute significant abnormality. He urine did not show signs of infection or blood. Her pain was improved after medication and treatment. The CT scan did not show any acute surgical findings however she did have ovarian cyst. There is no free fluid in the pelvis. Her pain also improved after treatment in the ED was returning is the medicine was wearing off. Will repeat the pain medication and send with a few pain pills. Counseled to call Dr. Pope in the clinic during the day and see about getting an ultrasound to evaluate the ovarian cyst in better detail. Diagnostic Imaging Diagonstic Imaging: CT Plain Films/CT/US/NM/MRI: abdomen, pelvis Comments Impression 1. Left ovarian dermoid. Benign right ovarian cyst. No free fluid in the pelvis. Read by radiologist Dr. Jacob Verdin M.D. At [phone] and faxed at [phone] Departure Impression Primary Impression: Right lower quadrant abdominal pain Additional Impression: Ovarian cyst Qualified Codes: N83.201 - Unspecified ovarian cyst, right side Disposition: HOME, SELF-CARE Condition: Stable Departure-Patient Inst. Decision time for Depature: 00:33 Referrals: [facility] (PCP) Primary Care Physician [facility] POPE DO Patient Instructions: Ovarian Cyst (DC), Acute Abdomen (Belly Pain), Adult (DC) Add. Discharge Instructions: Check back with Dr. Pope about your abdominal pain and ovarian cyst. Try the hydrocodone for severe pain and consider a laxative to help keep your stools soft and regular All discharge instructions reviewed with patient and/or family. Voiced understanding. Scripts Hydrocodone Bit/Acetaminophen (Hydrocodone/Acetaminophen 5/325mg Tablet) 1 Tab Tab 1 EACH PO Q6H PRN for PAIN-SEVERE (8-10) MDD 10 for 2 Days, #8 TAB 0 Refills Prov: MONIKA KOTHARI MD 07/24/19 Work/School Note: Work Release Form Date Seen in the Emergency Department: Jul 24, 2019 Return to Work: Jul 25, 2019 Restrictions: No Restrictions MONIKA KOTHARI MD Jul 23, 2019 22:09
[2019-07-23 22:32] LABS: BACTERIA,URINE TRACE /HPF; BILIRUBIN,URINE NEGATIVE (NEGATIVE); CLARITY,URINE CLEAR; COLOR,URINE YELLOW; GLUCOSE, URINE (UA) NEGATIVE (NEGATIVE); KETONES,URINE NEGATIVE (NEGATIVE); LEUKOCYTE ESTERASE ,URINE TRACE (NEGATIVE); NITRITE,URINE NEGATIVE (NEGATIVE); PROTEIN,URINE NEGATIVE (NEGATIVE); RBC,URINE 0-2 /HPF; WBC,URINE 0-2 /HPF
[2019-07-23] MEDS ORDERED: fentaNYL INJECTION 100 MCG/2 ML AMP IVP STA (22:56)
[2019-07-23] MEDS ORDERED: KETOROLAC 30 MG/ML VIAL IVP STA (22:56)
[2019-07-23] MEDS ORDERED: NS IV 1000 ML 1,000 ML IV STA (22:56)
[2019-07-24] MEDS ORDERED: fentaNYL INJECTION 100 MCG/2 ML AMP IVP STA (00:29)
[2019-07-24] MEDS ORDERED: RX-HYDROCODONE/APAP 5/325 MG #4 TAB PK PO PRN (00:30)
[2019-07-24] MEDS ORDERED: ACHD5005 PO (00:35)
[2019-07-24 00:48] VITALS: BP 139/78
--- NOTE | 2019-07-24 06:14 | Diagnostic Imaging Report ---
PROCEDURE: CT abdomen and pelvis without contrast. TECHNIQUE: Multiple contiguous axial images were obtained through the abdomen and pelvis without the use of intravenous contrast. Auto Exposure Controls were utilized during the CT exam to meet ALARA standards for radiation dose reduction. INDICATION: Right lower abdominal pain radiating to the right lower back. History of cholecystectomy and C-sections. COMPARISON: 01/09/2019 FINDINGS: The lung bases demonstrate dependent atelectasis. The heart is normal in size. There is no pericardial effusion. The liver is upper normal in size. Cholecystectomy clips are noted. There are a few areas of geographic hypodensity in the liver, likely from fatty infiltration. The spleen appears normal. The adrenal glands are normal. The pancreas is unremarkable. The kidneys demonstrate no hydronephrosis or obstructing calculi. No calculi are seen in the bladder. An IUD is seen in the uterus. The bowel loops are nondistended without obstruction. The appendix is normal. No free fluid or free air is seen. No lymphadenopathy is seen. No acute osseous abnormality is identified. IMPRESSION: 1. No renal calculi or hydronephrosis. 2. Fatty infiltration of the liver. Dictated by: Dictated on workstation # [id number]
== END 2019-07-24 00:48 | disposition home or self-care (01) ==
LOC: EDUNIT# 21:08 → ER FS 21:09
DX: N83.201 Unspecified ovarian cyst, right side (principal); F32.9 Major depressive disorder, single episode, unspecified; F17.210 Nicotine dependence, cigarettes, uncomplicated; Z80.3 Family history of malignant neoplasm of breast; Z80.49 Family history of malignant neoplasm of other genital organs; Z82.49 Family history of ischemic heart disease and other diseases of the circulatory system
CPT/HCPCS: 36415; 74176; 80053; 81000; 83690; 84703; 85025; 96361; 96374; 96375; 96376

== ENCOUNTER 2019-11-24 15:53 | Emergency (ER) | payer BC ==
[~2019-11-24] VITALS: Ht 172.7 cm; Wt 103.9 kg
[~2019-11-24 15:53] MED LIST changes: +ACHD5005 PO
--- OUTSIDE RECORDS SUMMARY | 2019-11-24 15:59 | XMS REPORT | Continuity of Care Document ---
Demographics x Preferred Language Unknown Marital Status Unknown Quaker Affiliation Unknown Race Unknown Ethnic Group Unknown Author Organization Unknown Address Unknown Phone Unavailable Allergies Active Description Code Type Severity Reaction Onset Reported/Identified Relationship to Patient Clinical Status Yes No Known Drug Allergies [id number] Drug Allergy Unknown N/A 01/09/2019 Yes shellfish derived [id number] Drug Allergy Unknown N/A 01/09/2019 Medications There is no data. 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 01/10/2019 MICHELLE HONEYCUTT DO Ot E66.9 OBESITY, UNSPECIFIED 01/10/2019 VERÓNICA HONEYCUTT DOI Ot E87.6 HYPOKALEMIA 01/10/2019 MICHELLE HONEYCUTT DO Ot F17.20 0 NICOTINE DEPENDENCE, UNSPECIFIED, UNCOMP 01/10/2019 MICHELLE HONEYCUTT DO Ot F32.9 MAJOR DEPRESSIVE DISORDER, SINGLE EPISOD 01/10/2019 MICHELLE HONEYCUTT DO Ot F41.9 ANXIETY DISORDER, UNSPECIFIED 01/10/2019 MICHELLE HONEYCUTT DO Ot K52.9 NONINFECTIVE GASTROENTERITIS AND COLITIS 01/10/2019 VERÓNICA HONEYCUTT DOI Ot K58.9 IRRITABLE BOWEL SYNDROME WITHOUT DIARRHE 01/10/2019 MICHELLE HONEYCUTT DO Ot R11.14 BILIOUS VOMITING 01/10/2019 MICHELLE HONEYCUTT DO Ot R21 RASH AND OTHER NONSPECIFIC SKIN ERUPTION 01/10/2019 MICHELLE HONEYCUTT DO Ot Z68.33 BODY MASS INDEX (BMI) 33.0-33.9, ADULT 01/10/2019 MICHELLE HONEYCUTT DO Ot Z79.3 FPC (CURRENT) USE OF HORMONAL CONT 01/10/2019 MICHELLE HONEYCUTT DO Ot Z79.89 9 OTHER MANAGER OF CONSTRUCTION (CURRENT) DRUG THERAPY 01/13/2019 MICHELLE HONEYCUTT DO Ot A09 INFECTIOUS GASTROENTERITIS AND COLITIS, 01/13/2019 MICHELLE HONEYCUTT DO Ot 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 01/13/2019 HONEYCUTT DO, MICHELLE Ot 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 01/13/2019 HONEYCUTT DO, MICHELLE Ot E66.9 OBESITY, UNSPECIFIED 01/13/2019 HONEYCUTT DO, MICHELLE Ot E87.6 HYPOKALEMIA 01/13/2019 HONEYCUTT DO, MICHELLE Ot F17.20 0 NICOTINE DEPENDENCE, UNSPECIFIED, UNCOMP 01/13/2019 HONEYCUTT DO MICHELLE Ot F32.9 MAJOR DEPRESSIVE DISORDER, SINGLE EPISOD 01/13/2019 HONEYCUTT DO MICHELLE Ot F41.9 ANXIETY DISORDER, UNSPECIFIED 01/13/2019 HONEYCUTT DO MICHELLE Ot K52.9 NONINFECTIVE GASTROENTERITIS AND COLITIS 01/13/2019 TANGELA DO MICHELLE Ot K58.9 IRRITABLE BOWEL SYNDROME WITHOUT DIARRHE 01/13/2019 TANGELA DO MICHELLE Ot R11.14 BILIOUS VOMITING 01/13/2019 TANGELA ARAYA MICHELLE Ot R21 RASH AND OTHER NONSPECIFIC SKIN ERUPTION 01/13/2019 TANGELA ARAYA MICHELLE Ot Z68.33 BODY MASS INDEX (BMI) 33.0-33.9, ADULT 01/13/2019 TANGELA ARAYA MICHELLE Ot Z79.3 FPC (CURRENT) USE OF HORMONAL CONT 01/13/2019 TANGELA ARAYA MICHELLE Ot Z79.89 9 OTHER FPC (CURRENT) DRUG THERAPY 01/16/2019 TANGELA ARAYA MICHELLE Ot A09 INFECTIOUS GASTROENTERITIS AND COLITIS, 01/16/2019 TANGELA ARAYA MICHELLE Ot 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 01/16/2019 TANGELA ARAYA MICHELLE Ot E66.9 OBESITY, UNSPECIFIED 01/16/2019 TANGELA DO MICHELLE Ot E87.6 HYPOKALEMIA 01/16/2019 TANGELA DO MICHELLE Ot F17.20 0 NICOTINE DEPENDENCE, UNSPECIFIED, UNCOMP 01/16/2019 TANGELA DO MICHELLE Ot F32.9 MAJOR DEPRESSIVE DISORDER, SINGLE EPISOD 01/16/2019 TANGELA DO MICHELLE Ot F41.9 ANXIETY DISORDER, UNSPECIFIED 01/16/2019 TANGELA DO MICHELLE Ot K52.9 NONINFECTIVE GASTROENTERITIS AND COLITIS 01/16/2019 TANGELA DO MICHELLE Ot K58.9 IRRITABLE BOWEL SYNDROME WITHOUT DIARRHE 01/16/2019 TANGELA ARAYA MICHELLE Ot R11.14 BILIOUS VOMITING 01/16/2019 MICHELLE HONEYCUTT DO Ot R21 RASH AND OTHER NONSPECIFIC SKIN ERUPTION 01/16/2019 MICHELLE HONEYCUTT DO Ot Z68.33 BODY MASS INDEX (BMI) 33.0-33.9, ADULT 01/16/2019 HONEYCUTTMICHELLE GILLESPIE DO Ot Z79.3 MANAGER OF CONSTRUCTION (CURRENT) USE OF HORMONAL CONT 01/16/2019 MICHELLE HONEYCUTT DO Ot Z79.89 9 OTHER FPC (CURRENT) DRUG THERAPY 02/14/2019 ASHVIN CULLEN DO Ot Z01.818 ENCOUNTER FOR OTHER PREPROCEDURAL EXAMIN 02/19/2019 ASHVIN CULLEN DO Ot Z01.818 ENCOUNTER FOR OTHER PREPROCEDURAL EXAMIN 02/19/2019 ASHVIN CULLEN DO Ot Z01.818 ENCOUNTER FOR OTHER PREPROCEDURAL EXAMIN 02/20/2019 ASHVIN CULLEN DO Ot F17.210 NICOTINE DEPENDENCE, CIGARETTES, UNCOMPL 02/20/2019 ASHVIN CULLEN DO Ot K52. 9 NONINFECTIVE GASTROENTERITIS AND COLITIS 02/20/2019 ASHVIN CULLEN DO Ot K63. 89 OTHER SPECIFIED DISEASES OF INTESTINE 02/20/2019 ASHVIN CULLEN DO Ot Z79.899 OTHER FPC (CURRENT) DRUG THERAPY 03/09/2019 ASHVIN CULLEN DO Ot F17.210 NICOTINE DEPENDENCE, CIGARETTES, UNCOMPL 03/09/2019 ASHVIN CULLEN DO Ot K52. 9 NONINFECTIVE GASTROENTERITIS AND COLITIS 03/09/2019 ASHVIN CULLEN DO Ot K63. 89 OTHER SPECIFIED DISEASES OF INTESTINE 03/09/2019 ASHVIN CULLEN DO Ot Z79.899 OTHER FPC (CURRENT) DRUG THERAPY 03/09/2019 ASHVIN CULLEN DO Ot F17.210 NICOTINE DEPENDENCE, CIGARETTES, UNCOMPL 03/09/2019 ASHVIN CULLEN DO Ot K52. 9 NONINFECTIVE GASTROENTERITIS AND COLITIS 03/09/2019 ASHVIN CULLEN DO Ot K63. 89 OTHER SPECIFIED DISEASES OF INTESTINE 03/09/2019 ASHVIN CULLEN DO Ot Z79.899 OTHER MANAGER OF CONSTRUCTION (CURRENT) DRUG THERAPY 03/11/2019 ASHVIN CULLEN DO Ot F17.210 NICOTINE DEPENDENCE, CIGARETTES, UNCOMPL 03/11/2019 ASHVIN CULLEN DO Ot K52. 9 NONINFECTIVE GASTROENTERITIS AND COLITIS 03/11/2019 ASHVIN CULLEN DO Ot K63. 89 OTHER SPECIFIED DISEASES OF INTESTINE 03/11/2019 ASHVIN CULLEN DO Ot Z79.899 OTHER MANAGER OF CONSTRUCTION (CURRENT) DRUG THERAPY 07/24/2019 MONIKA KOTHARI MD Ot F17.2 10 NICOTINE DEPENDENCE, CIGARETTES, UNCOMPL 07/24/2019 MONIKA KOTHARI MD Ot F32.9 MAJOR DEPRESSIVE DISORDER, SINGLE EPISOD 07/24/2019 MONIKA KOTHARI MD Ot N83.2 01 UNSPECIFIED OVARIAN CYST, RIGHT SIDE 07/24/2019 MONIKA KOTHARI MD Ot R10.3 1 RIGHT LOWER QUADRANT PAIN 07/24/2019 MONIKA KOTHARI MD Ot Z80.3 FAMILY HISTORY OF MALIGNANT NEOPLASM OF 07/24/2019 MONIKA KOTHARI MD Ot Z80.4 9 FAMILY HISTORY OF MALIGNANT NEOPLASM OF 07/24/2019 MONIKA KOTHARI MD Ot Z82.4 9 FAMILY HX OF ISCHEM HEART DIS AND OTH DI 07/27/2019 MONIKA KOTHARI MD Ot F17.2 10 NICOTINE DEPENDENCE, CIGARETTES, UNCOMPL 07/27/2019 MONIKA KOTHARI MD Ot F32.9 MAJOR DEPRESSIVE DISORDER, SINGLE EPISOD 07/27/2019 MONIKA KOTHARI MD Ot N83.2 01 UNSPECIFIED OVARIAN CYST, RIGHT SIDE 07/27/2019 MONIKA KOTHARI MD Ot R10.3 1 RIGHT LOWER QUADRANT PAIN 07/27/2019 MONIKA KOTHARI MD Ot Z80.3 FAMILY HISTORY OF MALIGNANT NEOPLASM OF 07/27/2019 MONIKA KOTHARI MD Ot Z80.4 9 FAMILY HISTORY OF MALIGNANT NEOPLASM OF 07/27/2019 MONIKA KOTHARI MD Ot Z82.4 9 FAMILY HX OF ISCHEM HEART DIS AND OTH DI 07/29/2019 MONIKA KOTHARI MD Ot F17.2 10 NICOTINE DEPENDENCE, CIGARETTES, UNCOMPL 07/29/2019 MONIKA KOTHARI MD Ot F32.9 MAJOR DEPRESSIVE DISORDER, SINGLE EPISOD 07/29/2019 MONIKA KOTHARI MD Ot N83.2 01 UNSPECIFIED OVARIAN CYST, RIGHT SIDE 07/29/2019 MONIKA KOTHARI MD Ot R10.3 1 RIGHT LOWER QUADRANT PAIN 07/29/2019 MONIKA KOTHARI MD, Ot Z80.3 FAMILY HISTORY OF MALIGNANT NEOPLASM OF 07/29/2019 MONIKA KOTHARI MD, Ot Z80.4 9 FAMILY HISTORY OF MALIGNANT NEOPLASM OF 07/29/2019 MONIKA KOTHARI MD, Ot Z82.4 9 FAMILY HX OF ISCHEM HEART DIS AND OTH DI Procedures There is no data. Results Test Result Range CBC - 12/19/18 08:28 WHITE BLOOD CELL COUNT 9.0 Thousand/uL 3 .8-10.8 RED BLOOD CELL COUNT 5.01 Million/uL 3.8 0-5.10 HEMOGLOBIN 15.3 g/dL 11.7-15.5 HEMATOCRIT 45.9 % 35.0-45.0 MCV 91.6 fL 80.0-100.0 MCH 30.5 pg 27.0-33.0 MCHC 33.3 g/dL 32.0-36.0 RDW 11.7 % 11.0-15.0 PLATELET COUNT 236 Thousand/uL 140-400 MPV 9.8 fL 7.5-12.5 ABSOLUTE NEUTROPHILS 6372 cells/uL 1500- 7800 ABSOLUTE LYMPHOCYTES 1836 cells/uL 850-3 900 ABSOLUTE MONOCYTES 531 cells/uL 200-950 ABSOLUTE EOSINOPHILS 189 cells/uL 15-500 ABSOLUTE BASOPHILS 72 cells/uL 0-200 NEUTROPHILS 70.8 % NRG LYMPHOCYTES 20.4 % NRG MONOCYTES 5.9 % NRG EOSINOPHILS 2.1 % NRG BASOPHILS 0.8 % NRG THYROID ANALYZER - 12/19/18 08:28 TSH 0.98 mIU/L NRG A1C - 12/19/18 08:28 HEMOGLOBIN A1c 5.1 % of total Hgb <5.7 Complete urinalysis with reflex to cultu re - 01/09/19 22:06 Urine color determination YELLOW NRG Urine clarity determination CLEAR NR G Urine pH measurement by test strip 6.0 5-9 Specific gravity of urine by test strip <= 1.016-1.022 Urine protein assay by test strip, semi-quantitative NEGATIVE NEGATIVE Urine glucose detection by automated test strip NE GATIVE NEGATIVE Erythrocytes detection in urine sediment by light micr oscopy NEGATIVE NEGATIVE Urine ketones detection by automated test strip NE GATIVE NEGATIVE Urine nitrite detection by test strip NEGATIVE NEGATIVE Urine total bilirubin detection by test strip NEGA TIVE NEGATIVE Urine urobilinogen measurement by automated test strip (mass/volume) 1.0 mg/dL NORMAL Urine leukocyte esterase detection by dipstick NEG ATIVE NEGATIVE Crystals detection in urine sediment by light microsco py NONE NRG Casts detection in urine sediment by light microscopy NONE NRG Mucus detection in urine sediment by light microscopy NEGATIVE NRG Complete urinalysis with reflex to culture NO NRG Urine beta human chorionic gonadotropin (hCG) measurement - 01/09/19 22:06 Urine beta human chorionic gonadotropin (hCG) measurem ent NEGATIVE NEGATIVE Complete blood count (CBC) with automate d white blood cell (WBC) differential - 01/09/19 22:10 Blood leukocytes automated count (number/volume) 10.1 10*3/uL 4.3-11.0 Blood erythrocytes automated count (number/volume) 5.08 10*6/uL 4.35-5.85 Venous blood hemoglobin measurement (mass/volume) 15.6 g/dL 11.5-16.0 Blood hematocrit (volume fraction) 45 % 35-52 Automated erythrocyte mean corpuscular volume 89 [ foz_us] 80-99 Automated erythrocyte mean corpuscular h emoglobin (mass per erythrocyte) 31 pg 25-34 Automated erythrocyte mean corpuscular h emoglobin concentration measurement (mass/volume) 35 g/dL 32-36 Automated erythrocyte distribution width ratio 11. 7 % 10.0- 14.5 Automated blood platelet count (count/volume) 262 10*3/uL 130-400 Automated blood platelet mean volume measurement 10.1 [foz_us] 7.4-10.4 Automated blood neutrophils/100 leukocytes 51 % 42-75 Automated blood lymphocytes/100 leukocytes 37 % 12-44 Blood monocytes/100 leukocytes 8 % 0-12 Automated blood eosinophils/100 leukocytes 2 % 0-10 Automated blood basophils/100 leukocytes 1 % 0-10 Blood neutrophils automated count (number/volume) 5.1 10*3 1.8-7.8 Blood lymphocytes automated count (number/volume) 3.8 10*3 1.0-4.0 Blood monocytes automated count (number/volume) 0. 8 10*3 0.0-1.0 Automated eosinophil count 0.2 10*3/uL 0 .0-0.3 Automated blood basophil count (count/volume) 0.1 10*3/uL 0.0-0.1 Comprehensive metabolic panel - 01/09/19 22:10 Serum or plasma sodium measurement (moles/volume) 138 mmol/L 135-145 Serum or plasma potassium measurement (moles/volume) 3.5 mmol/L 3.6-5.0 Serum or plasma chloride measurement (moles/volume) 100 mmol/L 98-107 Carbon dioxide 22 mmol/L 21-32 Serum or plasma anion gap determination (moles/volume) 16 mmol/L 5-14 Serum or plasma urea nitrogen measurement (mass/volume ) 7 mg/dL 7-18 Serum or plasma creatinine measurement (mass/volume) 0.86 mg/dL 0.60-1.30 Serum or plasma urea nitrogen/creatinine mass ratio 8 NRG Serum or plasma creatinine measurement w ith calculation of estimated glomerular filtration rate > NRG Serum or plasma glucose measurement (mass/volume) 128 mg/dL 70-105 Serum or plasma calcium measurement (mass/volume) 9.3 mg/dL 8.5-10.1 Serum or plasma total bilirubin measurement (mass/volu me) 0.9 mg/dL 0.1-1.0 Serum or plasma alkaline phosphatase jose surement (enzymatic activity/volume) 111 U/L 40-136 Serum or plasma aspartate aminotransfera se measurement (enzymatic activity/volume) 31 U/L 5-34 Serum or plasma alanine aminotransferase measurement (enzymatic activity/volume) 42 U/L 0-55 Serum or plasma protein measurement (mass/volume) 7.3 g/dL 6.4-8.2 Serum or plasma albumin measurement (mass/volume) 4.3 g/dL 3.2-4.5 CALCIUM CORRECTED 9.1 mg/dL 8.5-10.1 Lipase - 01/09/19 22:10 Lipase 50 U/L 8-78 Complete blood count (CBC) with automate d white blood cell (WBC) differential - 01/10/19 05:04 Blood leukocytes automated count (number/volume) 6.9 10*3/uL 4.3-11.0 Blood erythrocytes automated count (number/volume) 4.35 10*6/uL 4.35-5.85 Venous blood hemoglobin measurement (mass/volume) 13.4 g/dL 11.5-16.0 Blood hematocrit (volume fraction) 39 % 35-52 Automated erythrocyte mean corpuscular volume 90 [ foz_us] 80-99 Automated erythrocyte mean corpuscular h emoglobin (mass per erythrocyte) 31 pg 25-34 Automated erythrocyte mean corpuscular h emoglobin concentration measurement (mass/volume) 34 g/dL 32-36 Automated erythrocyte distribution width ratio 11. 9 % 10.0- 14.5 Automated blood platelet count (count/volume) 207 10*3/uL 130-400 Automated blood platelet mean volume measurement 10.3 [foz_us] 7.4-10.4 Automated blood neutrophils/100 leukocytes 44 % 42-75 Automated blood lymphocytes/100 leukocytes 45 % 12-44 Blood monocytes/100 leukocytes 8 % 0-12 Automated blood eosinophils/100 leukocytes 3 % 0-10 Automated blood basophils/100 leukocytes 0 % 0-10 Blood neutrophils automated count (number/volume) 3.0 10*3 1.8-7.8 Blood lymphocytes automated count (number/volume) 3.1 10*3 1.0-4.0 Blood monocytes automated count (number/volume) 0. 6 10*3 0.0-1.0 Automated eosinophil count 0.2 10*3/uL 0 .0-0.3 Automated blood basophil count (count/volume) 0.0 10*3/uL 0.0-0.1 Whole blood basic metabolic panel - 12/28 09/15 05:04 Serum or plasma sodium measurement (moles/volume) 139 mmol/L 135-145 Serum or plasma potassium measurement (moles/volume) 3.8 mmol/L 3.6-5.0 Serum or plasma chloride measurement (moles/volume) 110 mmol/L 98-107 Carbon dioxide 20 mmol/L 21-32 Serum or plasma anion gap determination (moles/volume) 9 mmol/L 5-14 Serum or plasma urea nitrogen measurement (mass/volume ) 7 mg/dL 7-18 Serum or plasma creatinine measurement (mass/volume) 0.75 mg/dL 0.60-1.30 Serum or plasma urea nitrogen/creatinine mass ratio 9 NRG Serum or plasma creatinine measurement w ith calculation of estimated glomerular filtration rate > NRG Serum or plasma glucose measurement (mass/volume) 94 mg/dL 70-105 Serum or plasma calcium measurement (mass/volume) 8.1 mg/dL 8.5-10.1 Complete blood count (CBC) with automate d white blood cell (WBC) differential - 01/11/19 05:14 Blood leukocytes automated count (number/volume) 5.4 10*3/uL 4.3-11.0 Blood erythrocytes automated count (number/volume) 4.17 10*6/uL 4.35-5.85 Venous blood hemoglobin measurement (mass/volume) 12.9 g/dL 11.5-16.0 Blood hematocrit (volume fraction) 38 % 35-52 Automated erythrocyte mean corpuscular volume 91 [ foz_us] 80-99 Automated erythrocyte mean corpuscular h emoglobin (mass per erythrocyte) 31 pg 25-34 Automated erythrocyte mean corpuscular h emoglobin concentration measurement (mass/volume) 34 g/dL 32-36 Automated erythrocyte distribution width ratio 12. 0 % 10.0- 14.5 Automated blood platelet count (count/volume) 189 10*3/uL 130-400 Automated blood platelet mean volume measurement 10.2 [foz_us] 7.4-10.4 Automated blood neutrophils/100 leukocytes 39 % 42-75 Automated blood lymphocytes/100 leukocytes 49 % 12-44 Blood monocytes/100 leukocytes 8 % 0-12 Automated blood eosinophils/100 leukocytes 3 % 0-10 Automated blood basophils/100 leukocytes 1 % 0-10 Blood neutrophils automated count (number/volume) 2.1 10*3 1.8-7.8 Blood lymphocytes automated count (number/volume) 2.7 10*3 1.0-4.0 Blood monocytes automated count (number/volume) 0. 4 10*3 0.0-1.0 Automated eosinophil count 0.2 10*3/uL 0 .0-0.3 Automated blood basophil count (count/volume) 0.0 10*3/uL 0.0-0.1 Comprehensive metabolic panel - 01/11/19 05:14 Serum or plasma sodium measurement (moles/volume) 138 mmol/L 135-145 Serum or plasma potassium measurement (moles/volume) 4.1 mmol/L 3.6-5.0 Serum or plasma chloride measurement (moles/volume) 110 mmol/L 98-107 Carbon dioxide 20 mmol/L 21-32 Serum or plasma anion gap determination (moles/volume) 8 mmol/L 5-14 Serum or plasma urea nitrogen measurement (mass/volume ) 6 mg/dL 7-18 Serum or plasma creatinine measurement (mass/volume) 0.75 mg/dL 0.60-1.30 Serum or plasma urea nitrogen/creatinine mass ratio 8 NRG Serum or plasma creatinine measurement w ith calculation of estimated glomerular filtration rate > NRG Serum or plasma glucose measurement (mass/volume) 86 mg/dL 70-105 Serum or plasma calcium measurement (mass/volume) 8.1 mg/dL 8.5-10.1 Serum or plasma total bilirubin measurement (mass/volu me) 0.5 mg/dL 0.1-1.0 Serum or plasma alkaline phosphatase jose surement (enzymatic activity/volume) 82 U/L 40-136 Serum or plasma aspartate aminotransfera se measurement (enzymatic activity/volume) 16 U/L 5-34 Serum or plasma alanine aminotransferase measurement (enzymatic activity/volume) 36 U/L 0-55 Serum or plasma protein measurement (mass/volume) 5.6 g/dL 6.4-8.2 Serum or plasma albumin measurement (mass/volume) 3.2 g/dL 3.2-4.5 CALCIUM CORRECTED 8.7 mg/dL 8.5-10.1 Complete blood count (CBC) with automate d white blood cell (WBC) differential - 01/12/19 05:25 Blood leukocytes automated count (number/volume) 7.7 10*3/uL 4.3-11.0 Blood erythrocytes automated count (number/volume) 4.25 10*6/uL 4.35-5.85 Venous blood hemoglobin measurement (mass/volume) 13.2 g/dL 11.5-16.0 Blood hematocrit (volume fraction) 38 % 35-52 Automated erythrocyte mean corpuscular volume 90 [ foz_us] 80-99 Automated erythrocyte mean corpuscular h emoglobin (mass per erythrocyte) 31 pg 25-34 Automated erythrocyte mean corpuscular h emoglobin concentration measurement (mass/volume) 35 g/dL 32-36 Automated erythrocyte distribution width ratio 11. 6 % 10.0- 14.5 Automated blood platelet count (count/volume) 205 10*3/uL 130-400 Automated blood platelet mean volume measurement 10.5 [foz_us] 7.4-10.4 Automated blood neutrophils/100 leukocytes 59 % 42-75 Automated blood lymphocytes/100 leukocytes 34 % 12-44 Blood monocytes/100 leukocytes 6 % 0-12 Automated blood eosinophils/100 leukocytes 0 % 0-10 Automated blood basophils/100 leukocytes 0 % 0-10 Blood neutrophils automated count (number/volume) 4.5 10*3 1.8-7.8 Blood lymphocytes automated count (number/volume) 2.6 10*3 1.0-4.0 Blood monocytes automated count (number/volume) 0. 5 10*3 0.0-1.0 Automated eosinophil count 0.0 10*3/uL 0 .0-0.3 Automated blood basophil count (count/volume) 0.0 10*3/uL 0.0-0.1 Comprehensive metabolic panel - 01/12/19 05:25 Serum or plasma sodium measurement (moles/volume) 139 mmol/L 135-145 Serum or plasma potassium measurement (moles/volume) 4.0 mmol/L 3.6-5.0 Serum or plasma chloride measurement (moles/volume) 111 mmol/L 98-107 Carbon dioxide 20 mmol/L 21-32 Serum or plasma anion gap determination (moles/volume) 8 mmol/L 5-14 Serum or plasma urea nitrogen measurement (mass/volume ) 6 mg/dL 7-18 Serum or plasma creatinine measurement (mass/volume) 0.80 mg/dL 0.60-1.30 Serum or plasma urea nitrogen/creatinine mass ratio 8 NRG Serum or plasma creatinine measurement w ith calculation of estimated glomerular filtration rate > NRG Serum or plasma glucose measurement (mass/volume) 94 mg/dL 70-105 Serum or plasma calcium measurement (mass/volume) 8.4 mg/dL 8.5-10.1 Serum or plasma total bilirubin measurement (mass/volu me) 0.4 mg/dL 0.1-1.0 Serum or plasma alkaline phosphatase jose surement (enzymatic activity/volume) 70 U/L 40-136 Serum or plasma aspartate aminotransfera se measurement (enzymatic activity/volume) 17 U/L 5-34 Serum or plasma alanine aminotransferase measurement (enzymatic activity/volume) 30 U/L 0-55 Serum or plasma protein measurement (mass/volume) 5.5 g/dL 6.4-8.2 Serum or plasma albumin measurement (mass/volume) 3.2 g/dL 3.2-4.5 CALCIUM CORRECTED 9.0 mg/dL 8.5-10.1 OCCULT BLOOD STOOL - 01/12/19 16:30 Stool gastrointestinal hemoglobin detection NEGATI VE NEGATIVE C DIFFICILE AG + TOXIN A/B. - 01/12/19 1 6:30 RESULTS NEGATIVE FOR ANTIGEN AND TOXIN A/B NRG Stool bacteria identification by culture - 01/12/19 16:30 Stool bacteria identification by culture N2 NRG Complete urinalysis with reflex to cultu re - 07/23/19 21:15 Urine color determination YELLOW NRG Urine clarity determination CLEAR NR G Urine pH measurement by test strip 7.0 5-9 Specific gravity of urine by test strip 1.010 1.016-1.022 Urine protein assay by test strip, semi-quantitative NEGATIVE NEGATIVE Urine glucose detection by automated test strip NE GATIVE NEGATIVE Erythrocytes detection in urine sediment by light micr oscopy NEGATIVE NEGATIVE Urine ketones detection by automated test strip NE GATIVE NEGATIVE Urine nitrite detection by test strip NEGATIVE NEGATIVE Urine total bilirubin detection by test strip NEGA TIVE NEGATIVE Urine urobilinogen measurement by automated test strip (mass/volume) 0.2 mg/dL < = 1.0 Urine leukocyte esterase detection by dipstick TRA CE NEGATIVE Automated urine sediment erythrocyte cou nt by microscopy (number/high power field) [HPF] NRG Automated urine sediment leukocyte count by microscopy (number/high power field) [HPF] NRG Bacteria detection in urine sediment by light microsco py TRACE NRG Squamous epithelial cells detection in u rine sediment by light microscopy 2-5 NRG Crystals detection in urine sediment by light microsco py NONE NRG Casts detection in urine sediment by light microscopy NONE NRG Mucus detection in urine sediment by light microscopy NONE NRG Complete urinalysis with reflex to culture NO NRG Complete blood count (CBC) with automate d white blood cell (WBC) differential - 07/23/19 21:43 Blood leukocytes automated count (number/volume) 8.6 10*3/uL 4.3-11.0 Blood erythrocytes automated count (number/volume) 4.86 10*6/uL 4.35-5.85 Venous blood hemoglobin measurement (mass/volume) 14.8 g/dL 11.5-16.0 Blood hematocrit (volume fraction) 43 % 35-52 Automated erythrocyte mean corpuscular volume 89 [ foz_us] 80-99 Automated erythrocyte mean corpuscular h emoglobin (mass per erythrocyte) 30 pg 25-34 Automated erythrocyte mean corpuscular h emoglobin concentration measurement (mass/volume) 34 g/dL 32-36 Automated erythrocyte distribution width ratio 11. 7 % 10.0- 14.5 Automated blood platelet count (count/volume) 224 10*3/uL 130-400 Automated blood platelet mean volume measurement 9.7 [foz_us] 7.4-10.4 Automated blood neutrophils/100 leukocytes 54 % 42-75 Automated blood lymphocytes/100 leukocytes 35 % 12-44 Blood monocytes/100 leukocytes 7 % 0-12 Automated blood eosinophils/100 leukocytes 3 % 0-10 Automated blood basophils/100 leukocytes 1 % 0-10 Blood neutrophils automated count (number/volume) 4.7 10*3 1.8-7.8 Blood lymphocytes automated count (number/volume) 3.0 10*3 1.0-4.0 Blood monocytes automated count (number/volume) 0. 6 10*3 0.0-1.0 Automated eosinophil count 0.2 10*3/uL 0 .0-0.3 Automated blood basophil count (count/volume) 0.1 10*3/uL 0.0-0.1 Comprehensive metabolic panel - 07/23/19 21:43 Serum or plasma sodium measurement (moles/volume) 139 mmol/L 135-145 Serum or plasma potassium measurement (moles/volume) 3.8 mmol/L 3.6-5.0 Serum or plasma chloride measurement (moles/volume) 102 mmol/L 98-107 Carbon dioxide 26 mmol/L 21-32 Serum or plasma anion gap determination (moles/volume) 11 mmol/L 5-14 Serum or plasma urea nitrogen measurement (mass/volume ) 11 mg/dL 7-18 Serum or plasma creatinine measurement (mass/volume) 0.81 mg/dL 0.60-1.30 Serum or plasma urea nitrogen/creatinine mass ratio 14 NRG Serum or plasma creatinine measurement w ith calculation of estimated glomerular filtration rate > NRG Serum or plasma glucose measurement (mass/volume) 132 mg/dL 70-105 Serum or plasma calcium measurement (mass/volume) 9.2 mg/dL 8.5-10.1 Serum or plasma total bilirubin measurement (mass/volu me) 0.5 mg/dL 0.1-1.0 Serum or plasma alkaline phosphatase jose surement (enzymatic activity/volume) 89 U/L 40-136 Serum or plasma aspartate aminotransfera se measurement (enzymatic activity/volume) 25 U/L 5-34 Serum or plasma alanine aminotransferase measurement (enzymatic activity/volume) 44 U/L 0-55 Serum or plasma protein measurement (mass/volume) 6.6 g/dL 6.4-8.2 Serum or plasma albumin measurement (mass/volume) 4.0 g/dL 3.2-4.5 CALCIUM CORRECTED 9.2 mg/dL 8.5-10.1 Lipase - 07/23/19 21:43 Lipase 33 U/L 8-78 Encounters ACCT No. Visit Date/Time Discharge Status Pt. Type Provider Facility Loc./Unit Complaint [id number] 09/08/2019 11:00:00 09/08/2019 23:59: 59 CLS Outpatient [facility] [id number] 12/19/2018 08:00:00 Document Registration [id number] 07/23/2019 21:09:00 00:48:00 DIS Emergency MONIKA KOTHARI MD [facility] ER FS ABD PAIN [id number] 02/20/2019 12:56:00 14:45:00 DIS Outpatient ASHVIN CULLEN DO [facility] ENDO HX COLITIS [id number] 02/14/2019 05:38:00 14:14:00 DIS Outpatient ASHVIN CULLEN DO [facility] PREOP COLONOSCOPY [id number] 01/11/2019 13:40:00 12:15:00 DIS Inpatient MICHELLE HONEYCUTT DO [facility] 4TH COLITIS, RUQ ABDOMINAL PAIN
--- NOTE | 2019-11-24 16:10 | ED Lower Extremity ---
General Chief Complaint: Lower Extremity Stated Complaint: LT ANKEL PAIN Source: patient Exam Limitations: no limitations History of Present Illness Date Seen by Provider: Nov 24, 2019 Time Seen by Provider: 15:57 Initial Comments The patient is a pleasant 34-year-old female presents for evaluation of left medial ankle and foot pain. She states that she was running and denies any injury but felt the pain. She went to a walk-in clinic but was told they could not perform x-rays that she came to the emergency department. She is able to walk on the foot and ankle but has some discomfort when doing so. She denies any other complaints or injuries. Onset: yesterday Pain/Injury Location: left foot, left ankle Modifying Factors: Improves With Movement (makes it worse) Allergies and Home Medications Allergies Coded Allergies: shellfish derived (Verified Allergy, Unknown, 01/09/19) Home Medications Hydrocodone Bit/Acetaminophen 1 Tab Tab, 1 EACH PO Q6H PRN for PAIN-SEVERE (8- 10) Prescribed by: MONIKA KOTHARI on 07/24/19 0035 Sertraline HCl 50 Mg Tablet, 50 MG PO HS, (Reported) Patient Home Medication List Home Medication List Reviewed: Yes Review of Systems Constitutional: no symptoms reported EENTM: no symptoms reported Respiratory: no symptoms reported Cardiovascular: no symptoms reported Gastrointestinal: no symptoms reported Genitourinary: no symptoms reported Musculoskeletal: joint pain (left medial ankle/foot pain ) Skin: no symptoms reported Psychiatric/Neurological: No Symptoms Reported Past Jnlldwd-Wnrzas-Tidlyg Hx Past Med/Social Hx: Reviewed Nursing Past Med/Soc Hx Patient Social History Type Used: Cigarettes 2nd Hand Smoke Exposure: Yes Recent Hopitalizations: No Immunizations Up To Date Tetanus Booster (TDap): Unknown Seasonal Allergies Seasonal Allergies: No Past Medical History Surgeries: Yes (cardiac ablation, c/s x3) Cardiac, Section, Gallbladder Respiratory: No Currently Using CPAP: No Cardiac: Yes (hx SVT had ablation no issues now) Neurological: No Female Reproductive Disorders: Denies, Ovarian Cyst Sexually Transmitted Disease: No HIV/AIDS: No Genitourinary: No Gastrointestinal: Yes Colitis Musculoskeletal: No Endocrine: No HEENT: No Loss of Vision: Denies Hearing Impairment: Denies Cancer: No Psychosocial: Yes Depression Integumentary: No Blood Disorders: No Family Medical History Diabetes mellitus 19 FATHER G8 BROTHER No Pertinent Family Hx Father: at 64, had diabetes, CHF, Cirrhosis of the liver, peripheral neuropathy Mother: still alive, hx of breast cancer, uterine cancer and RA Brother: diabetes Physical Exam Vital Signs Vital Signs - First Documented 11/24/19 16:04 Temp 36.7 Pulse 95 Resp 18 B/P (MAP) 135/81 (99) Pulse Ox 97 O2 Delivery Room Air Capillary Refill : Height, Weight, BMI Height: 5'7.00" Weight: 215lbs. 0.0oz. 97.394003ru; 35.00 BMI Method:Stated General Appearance: WD/WN, no apparent distress HEENT: PERRL/EOMI, normal ENT inspection Neck: full range of motion, normal inspection Cardiovascular: regular rate, rhythm, no edema, no JVD Respiratory: lungs clear, no respiratory distress, no accessory muscle use Hips: bilateral hip non-tender, bilateral hip normal inspection, bilateral hip normal range of motion, bilateral hip no evidence of injury Legs: bilateral leg non-tender, bilateral leg normal inspection, bilateral leg normal range of motion, bilateral leg no evidence of injury Knees: bilateral knee non-tender, bilateral knee normal inspection, bilateral knee normal range of motion, bilateral knee no evidence of injury Ankles: left ankle pain (left medial malleolus with some tenderness palpation, no swelling or deformity) Feet: left foot bone tenderness (some tenderness to the left medial midfoot) Neurologic/Psychiatric: no motor/sensory deficits, alert, normal mood/affect, oriented x 3 Skin: normal color, warm/dry Progress/Results/Core Measures Results/Orders My Orders Orders - ANI CARRERA DO Foot 3 View Left (11/24/19 16:02) Ankle 3 View Left (11/24/19 16:02) Vital Signs/I&O 11/24/19 16:04 Temp 36.7 Pulse 95 Resp 18 B/P (MAP) 135/81 (99) Pulse Ox 97 O2 Delivery Room Air Progress Progress Note : Progress Note @1630 - patient updated on imaging results which are acutely unremarkable. Advised the patient to follow up with her PCP in the next 2-3 days and to return to the emergency Department immediately for new or worsening symptoms. The patient expresses verbal understanding and agreement and is stable for discharge. Diagnostic Imaging Diagonstic Imaging: Xray Comments [facility]. [place], [place] NAME: CARLITOS DANG [facility] REC#: [id number] PT STATUS: REG ER : 1985 PHYSICIAN: ANI CARRERA DO ADMIT DATE: 11/24/19/ER FS Signed Date of Exam:11/24/19 FOOT 3 VIEW LEFT INDICATION: Left foot pain, running injury. COMPARISON: None. FINDINGS: Three views of the left foot demonstrate no fracture or dislocation. No sclerosis is seen that would indicate a subacute to chronic fracture. No foreign body identified. No bony erosion. IMPRESSION: Negative left foot. Dictated by: Dictated on workstation # [id number] Dict: 11/24/19 1614 Trans: 11/24/19 1624 [facility] [id number] Interpreted by: KATH MASTERS Electronically signed by: KATH MASTERS 11/24/19 1624 Departure Impression Primary Impression: Left ankle pain Additional Impression: Left foot pain Disposition: 01 HOME, SELF-CARE Condition: Stable Departure-Patient Inst. Decision time for Depature: 16:30 Referrals: NO,LOCAL PHYSICIAN (PCP/Family) Primary Care Physician Patient Instructions: Foot Sprain (DC), Ankle Sprain (DC) Add. Discharge Instructions: Take ibuprofen or Tylenol home for pain relief. Wear the Aircast splint provided for comfort over the next week. Follow-up with your doctor in the next 2-3 days. Return to the emergency Department immediately for new or worsening symptoms. ANI CARRERA DO Nov 24, 2019 16:10
--- NOTE | 2019-11-24 16:19 | Diagnostic Imaging Report ---
INDICATION: Left foot pain, running injury. COMPARISON: None. FINDINGS: Three views of the left foot demonstrate no fracture or dislocation. No sclerosis is seen that would indicate a subacute to chronic fracture. No foreign body identified. No bony erosion. IMPRESSION: Negative left foot. Dictated by: Dictated on workstation # [id number]
--- NOTE | 2019-11-24 16:23 | Diagnostic Imaging Report ---
INDICATION: Left ankle injury. COMPARISON: None. EXAMINATION: Three views of the left ankle were obtained. FINDINGS: No fracture or dislocation. Articular surfaces are normal. No foreign body. IMPRESSION: Negative left ankle. Dictated by: Dictated on workstation # [id number]
[2019-11-24 16:34] VITALS: BP 135/81
== END 2019-11-24 16:36 | disposition home or self-care (01) ==
LOC: EDUNIT# 15:53 → ER FS 15:55
DX: M25.572 Pain in left ankle and joints of left foot (principal); F32.9 Major depressive disorder, single episode, unspecified; Z82.49 Family history of ischemic heart disease and other diseases of the circulatory system; Z77.22 Contact with and (suspected) exposure to environmental tobacco smoke (acute) (chronic); Z80.3 Family history of malignant neoplasm of breast; Z80.49 Family history of malignant neoplasm of other genital organs
CPT/HCPCS: 73610; 73630; 99282; L4350

== ENCOUNTER → 2020-06-03 | Outpatient (CLI) | payer BC ==
--- NOTE | 2020-06-03 10:25 | Diagnostic Imaging Report ---
INDICATION: Routine screening. No prior mammograms are available for comparison. This is a baseline study. 2-D and 3-D bilateral screening mammography was performed with CAD. Scattered fibroglandular densities are identified bilaterally. No mass or malignant appearing microcalcifications are seen. Axillae are unremarkable. IMPRESSION: BI-RADS Category 1 No mammographic features suspicious for malignancy are identified. ACR BI-RADS Category 1: Negative. Result letter will be mailed to the patient. Note: At least 10% of breast cancer is not imaged by mammography. Dictated by: Dictated on workstation # [id number]
== END ==
LOC: RAD 08:30
PROVIDERS: ATTEND Nurse Practitioner
DX: Z01.419 Encounter for gynecological examination (general) (routine) without abnormal findings (principal); Z12.31 Encounter for screening mammogram for malignant neoplasm of breast; Z80.3 Family history of malignant neoplasm of breast
CPT/HCPCS: 77063; 77067